=== PATIENT | male | born 1950 | race Caucasian/White ===

== ENCOUNTER 2017-05-26 13:30 | Inpatient (IN) | payer MEDICAID, MEDICARE ==
[2017-05-26] VITALS (19 sets, daily range): BP systolic 87–125; BP diastolic 47–69; PULSE 82–100; RESP 20–33; TEMP 98.3–98.8; O2SAT 89–98
[~2017-05-26] VITALS: Ht 172.7 cm; Wt 98.0 kg
[~2017-05-26 13:30] MED LIST: COMBAER INH; FLUN25I; GEMF600T PO; HYDR25SU4 PR; LEVA750T9 PO; METF500T PO; METF850T PO; NITR.4 SL; POLY1.4S OP; PRED20 PO; PREG25 PO; REST0.05 EACH EYE; TIOT18I; VITA50TA3 PO; Z.0.OXYGEN INH
[2017-05-26] MEDS ORDERED: methylPREDNISolone SOD SUCC 125 MG/2 ML VIAL IV PUSH ONE (14:00)
[2017-05-26] MEDS ORDERED: SODIUM CHLORIDE 0.9% FLUSH 10 ML FLUSH IVF PRN (14:00)
[2017-05-26] MEDS: RESP: ALBUTEROL 2.5 MG/IPRATROPIUM 0.5 MG NEB (SCH) INH ×2 (14:03→19:23)
[2017-05-26 14:21] LABS: AUTOMATED NEUTROPHIL # 5.8 TH/MM3 (1.8-7.7); BASOPHIL # 0.1 TH/MM3 (0-0.2); BASOPHIL % 0.8 % (0.0-2.0); EOSINOPHIL % 0.4 % (0.0-4.0); HEMATOCRIT 41.4 % (39.0-51.0); LYMPH % 15.1 % (9.0-44.0); LYMPHOCYTE # 1.1 TH/MM3 (1.0-4.8); MEAN CELL VOLUME 88.9 FL (80.0-100.0); MEAN CORPUSCULAR HEMOGLOBIN 28.6 PG (27.0-34.0); MEAN CORPUSCULAR HGB CONC 32.2 % (32.0-36.0); MONO % 7.1 % (0.0-8.0); NEUT % 76.6 % (16.0-70.0); PLATELET COUNT 221 TH/MM3 (150-450); RED BLOOD COUNT 4.66 MIL/MM3 (4.50-5.90); RED CELL DISTRIBUTION WIDTH 13.7 % (11.6-17.2); WHITE BLOOD COUNT 7.5 TH/MM3 (4.0-11.0)
[2017-05-26 14:22] LABS: HEMO FLAGS DIFF FINAL
[2017-05-26 14:30] LABS: CHLORIDE 88 MEQ/L (98-107); POTASSIUM 3.7 MEQ/L (3.5-5.1); SODIUM (NA) 134 MEQ/L (136-145)
[2017-05-26 14:34] LABS: ANION GAP 2 MEQ/L (5-15); BLOOD UREA NITROGEN 11 MG/DL (7-18); MAGNESIUM 1.7 MG/DL (1.5-2.5)
[2017-05-26 14:37] LABS: ALT (GPT) 23 U/L (12-78); AST (GOT) 19 U/L (15-37); GLOMERULAR FILTRATION RATE 189 ML/MIN (>89)
[2017-05-26 14:38] LABS: TOTAL BILIRUBIN ADULT 0.8 MG/DL (0.2-1.0)
[2017-05-26 14:40] LABS: ALKALINE PHOSPHATASE 64 U/L (45-117)
--- NOTE | 2017-05-26 14:48 | EKG ---
Date Performed: 05/26/2017 Time Performed: 14:00:15 PTAGE: 66 years EKG: Sinus rhythm POSSIBLE LEFT ATRIAL ENLARGEMENT INDETERMINATE AXIS RIGHT BUNDLE BRANCH BLOCK ABNORMAL ECG No signif icant change from prior electrocardiogram. . PREVIOUS TRACING : 03/19/2012 20.47 DOCTOR: Cong Muñiz Interpretating Date/Time 05/26/2017 14:47:52
--- NOTE | 2017-05-26 14:53 | PD ---
HPI Chief Complaint: Respiratory Symptoms Time Seen by Provider: 13:38 Travel History International Travel<30 days: No Contact w/Intl Traveler<30days: No Traveled to known affect area: No History of Present Illness HPI This 66-year-old male is complaining of shortness of breath. He has a history of COPD. He is on oxygen at home. He generally uses 4 L/m. He has had increasing shortness of breath over the last few days. He is not aware of fever or chills. He was admitted to the hospital about a month ago with pneumonia. He admits that he still smokes occasionally. He is not having any chest pain. He is not aware of any heart disease. He says that when his oxygen level goes low he does get confused. He occasionally hallucinates and has visual disturbances PFSH Past Medical History Cardiovascular Problems: Yes (high cholesterol ) High Cholesterol: Yes Chest Pain: Yes COPD: Yes Coronary Artery Disease: Yes Diabetes: Yes Patient Takes Glucophage: No Diminished Hearing: No Musculoskeletal: Yes (CHRONIC BACK PAIN) Respiratory: Yes (COPD ) Tetanus Vaccination: Unknown Influenza Vaccination: No Past Surgical History Appendectomy: Yes Other Surgery: Yes (PIPE EMBEDDED IN HEAD AND REMOVED) Social History Alcohol Use: No Tobacco Use: Yes Substance Use: No Allergies-Medications (Allergen,Severity, Reaction): Coded Allergies: aspirin (Unverified Allergy, Severe, Hives, 02/10/17) tramadol (Unverified Allergy, Severe, Hives, 02/10/17) No Known Allergies (Unverified Allergy, 05/20/17) Uncoded Allergies: NSAIDS (Allergy, Severe, Hives, 11/26/11) "ALL NSAIDS, I CAN'T REMEMBER ALL OF THEM" Reported Meds & Prescriptions Reported Meds & Active Scripts Active Augmentin (Amoxicillin-Clavulanate) 875-125 Mg Tab 1 Tab PO BID 10 Days Prednisone 20 Mg Tab 20 Mg PO DIRECTED Take 60 MG daily x 4 days, then 40 MG x 4 days, then 20 MG daily x 4 days. Prednisone 20 Mg Tab 20 Mg PO BID Levaquin (Levofloxacin) 750 Mg Tablet 750 Mg PO DAILY@1100 Start on 03/10/17 Reported Restasis Opth (Cyclosporine Opth) 0.05% Emul 1 Drop EACH EYE BID PRN Lyrica (Pregabalin) 25 Mg Cap 25 Mg PO BID Metformin (Metformin HCl) 500 Mg Tab 500 Mg PO BIDPC With meals Oxygen (O2) (Miscellaneous Medication) Inha 2 L INH HS Spiriva 18 Mcg Oral Inh (Tiotropium [place]) 18 Mcg Inhp 18 Mcg .XX Vit B-6 (Pyridoxine HCl) 50 Mg Tab 1 Tab PO DAILY Hydrocortisone Acetate 25 Mg Sup 25 Mg NC BID Polyvinyl Alcohol 1.4 % Estela 1 % OP QIDPRN Nitroglycerin Tab 0.4 Mg Sl (Nitroglycerin) 0.4 Mg Subl 0.4 Mg SL DIRECTED Metformin (Metformin HCl) 850 Mg Tab 1,000 Mg PO BID Gemfibrozil 600 Mg Tab 600 Mg PO BID Flunisolide 0.025 % Spr 0.025 % NA BID Combivent (Albuterol/Ipratropium) 14.7 Gm Aer 2 Puff INH QIDPRN Review of Systems General / Constitutional: No: Fever, Chills Eyes: Positive: Visual changes HENT: No: Headaches, Vertigo Cardiovascular: No: Chest Pain or Discomfort, Palpitations Respiratory: Positive: Cough, Shortness of Breath Gastrointestinal: No: Nausea, Vomiting Genitourinary: No: Urgency, Frequency Musculoskeletal: No: Myalgias Skin: No Rash Endocrine: No: Heat Intolerance Hematologic/Lymphatic: No: Easy Bruising Physical Exam Narrative GENERAL: Well-developed male. Oxygen saturation on arrival was 66%. His breathing is very labored SKIN: Focused skin assessment warm/dry. HEAD: Atraumatic. Normocephalic. EYES: Pupils equal and round. No scleral icterus. No injection or drainage. ENT: No nasal bleeding or discharge. Mucous membranes pink and moist. NECK: Trachea midline. No JVD. CARDIOVASCULAR: Regular rate and rhythm. No murmur appreciated. RESPIRATORY: There is accessory muscle use. Breath sounds are diminished bilaterally. GASTROINTESTINAL: Abdomen soft, non-tender, nondistended. Hepatic and splenic margins not palpable. MUSCULOSKELETAL: No obvious deformities. No clubbing. No cyanosis. No edema. NEUROLOGICAL: Awake and alert. No obvious cranial nerve deficits. Motor grossly within normal limits. Hyperactive speech. PSYCHIATRIC: Appropriate mood and affect; insight and judgment limited Data Data Last Documented VS Vital Signs Date Time Temp Pulse Resp B/P (MAP) Pulse Ox O2 Delivery O2 Flow Rate FiO2 05/26/17 14:34 98 Nasal Cannula 4.00 05/26/17 14:15 22 05/26/17 14:00 93 125/69 (87) Orders Orders Complete Blood Count With Diff (05/26/17 13:49) Comprehensive Metabolic Panel (05/26/17 13:49) B-Type Natriuretic Peptide (05/26/17 13:49) Magnesium (Mg) (05/26/17 13:49) Troponin I (05/26/17 13:49) Urinalysis - C+S If Indicated (05/26/17 13:49) Blood Culture (05/26/17 13:49) Iv Access Insert/Monitor (05/26/17 13:49) Electrocardiogram (05/26/17 13:49) Ecg Monitoring (05/26/17 13:49) Oximetry (05/26/17 13:49) Oxygen Administration (05/26/17 13:49) Chest, Single Ap (05/26/17 13:49) Sodium Chloride 0.9% Flush (Ns Flush) (05/26/17 14:00) Methylprednisolone So Succ Inj (Solumedr (05/26/17 14:00) Albuterol-Ipratropium Neb (Duoneb Neb) (05/26/17 14:00) Hospice Consult (05/26/17 15:47) Amoxicil-Clavulanate (Augmentin) (05/26/17 16:00) Labs Laboratory Tests Test 05/26/17 14:10 White Blood Count 7.5 TH/MM3 Red Blood Count 4.66 MIL/MM3 Hemoglobin 13.3 GM/DL Hematocrit 41.4 % Mean Corpuscular Volume 88.9 FL Mean Corpuscular Hemoglobin 28.6 PG Mean Corpuscular Hemoglobin Concent 32.2 % Red Cell Distribution Width 13.7 % Platelet Count 221 TH/MM3 Mean Platelet Volume 8.3 FL Neutrophils (%) (Auto) 76.6 % Lymphocytes (%) (Auto) 15.1 % Monocytes (%) (Auto) 7.1 % Eosinophils (%) (Auto) 0.4 % Basophils (%) (Auto) 0.8 % Neutrophils # (Auto) 5.8 TH/MM3 Lymphocytes # (Auto) 1.1 TH/MM3 Monocytes # (Auto) 0.5 TH/MM3 Eosinophils # (Auto) 0.0 TH/MM3 Basophils # (Auto) 0.1 TH/MM3 CBC Comment DIFF FINAL Differential Comment Blood Urea Nitrogen 11 MG/DL Creatinine 0.45 MG/DL Random Glucose 118 MG/DL Total Protein 7.2 GM/DL Albumin 3.5 GM/DL Calcium Level 9.1 MG/DL Magnesium Level 1.7 MG/DL Alkaline Phosphatase 64 U/L Aspartate Amino Transf (AST/SGOT) 19 U/L Alanine Aminotransferase (ALT/SGPT) 23 U/L Total Bilirubin 0.8 MG/DL Sodium Level 134 MEQ/L Potassium Level 3.7 MEQ/L Chloride Level 88 MEQ/L Carbon Dioxide Level 44.0 MEQ/L Anion Gap 2 MEQ/L Estimat Glomerular Filtration Rate 189 ML/MIN Troponin I LESS THAN 0.02 NG/ML B-Type Natriuretic Peptide 32 PG/ML MDM Medical Decision Making Medical Screen Exam Complete: Yes Emergency Medical Condition: Yes Medical Record Reviewed: Yes Differential Diagnosis Differential includes COPD exacerbation, pneumonia, CHF Narrative Course Patient lives alone. Chest x-ray shows low lung volumes with persistent patchy left lower lobe airspace disease with at least some component of atelectasis. He has been given repeated nebulizer treatments. His saturations on supplemental oxygen are in the low 90s. He remains short of breath. I spoke to the patient at some length and recommended admission. The patient adamantly refuses admission. I have explained the risk of and he is quite adamant does not want to be admitted. He is awake and alert and understands the consequences of his actions. He did requests hospice assistance and I will try to arrange this. Patient is insistent on not staying in the hospital. I will prescribe prednisone and Augmentin supplements his other medications Diagnosis Primary Impression: Pneumonia Additional Impression: COPD exacerbation Scripts Amoxicillin-Clavulanate (Augmentin) 875-125 Mg Tab 1 TAB PO BID for Infection for 10 Days, #20 TAB 0 Refills Prov: Wade Garrett MD 05/26/17 Prednisone (Prednisone) 20 Mg Tab 20 MG PO DIRECTED, #24 TAB 0 Refills Take 60 MG daily x 4 days, then 40 MG x 4 days, then 20 MG daily x 4 days. Prov: Wade Garrett MD 05/26/17 Disposition: 07 AGAINST MEDICAL ADVICE Condition: Serious Wade Garrett MD May 26, 2017 14:53
--- NOTE | 2017-05-26 15:19 | RADRPT ---
EXAM DATE/TIME: 05/26/2017 14:39 [facility] COMPARISON: CHEST SINGLE AP, March 04, 2017, 7:50. INDICATIONS : Short of breath. MEDICAL HISTORY : Chronic obstructive pulmonary disease. Diabetes mellitus type II. Hypertension. neuropathy SURGICAL HISTORY : None. ENCOUNTER: Initial ACUITY: 1 week PAIN SCORE: 0/10 LOCATION: Bilateral chest FINDINGS: Lungs are hyperexpanded with persistent airspace disease in the left lower lung zone, now more linear in configuration laterally. The cardiomediastinal contours are within normal limits. Remainder of ex am is unchanged. CONCLUSION: 1. Low lung volumes with persistent patchy left lower lobe airspace disease with at least some compon ent of atelectasis. Richard Faye MD on May 26, 2017 at 15:15 Board Certified Radiologist. This report was verified electronically.
[2017-05-26] MEDS ORDERED: AUGM875T3 PO (15:49)
[2017-05-26] MEDS ORDERED: PRED20 PO (15:49)
[2017-05-26] MEDS ORDERED: FLUN25I EACH NARE (16:00)
[2017-05-26] MEDS ORDERED: AMOXICILLIN/CLAVULANATE K 875 MG TAB PO ONE (16:00)
[2017-05-26] MEDS ORDERED: TIOT12.9 INH (16:00)
[2017-05-26] MEDS ORDERED: GEMF600T PO (16:00)
[2017-05-26] MEDS ORDERED: RESP: ALBUTEROL 2.5 MG/3 ML NEB (PRN) INH (16:30)
[2017-05-26 16:49] LABS: BLOOD GAS BASE EXCESS 15.9 mmol/L (-2-2); BLOOD GAS CARBOXYHEMOGLOBIN 9.2 % (0-4); BLOOD GAS HCO3 43 mmol/L (22-26); BLOOD GAS O2 HGB SATURATION 80 % (90-100); BLOOD GAS OXYGEN CONTENT 16.1 Vol % (12.0-20.0); BLOOD GAS PCO2 87 mmHG (38-42); BLOOD GAS PO2 56 mmHG (61-120); BLOOD GAS TOTAL HGB 14.3 G/DL (12.0-16.0); TEMP CORR TO 98.6
[2017-05-26 16:50] LABS: CRITICAL VALUE YES; DRAW SITE RT RADIAL; LITER FLOW 4 L/M; NUMBER OF ARTERIAL PUNCTURES 1; OXYGEN DEVICE NASAL CANNULA; STAT YES; ULNAR PULSE PRESENT
[2017-05-26] MEDS ORDERED: GLUCAGON 1 MG/ML VIAL OTHER PRN (17:15)
[2017-05-26] MEDS ORDERED: DEXTROSE 50% IN WATER 50 ML VIAL(D50) IV PUSH PRN (17:15)
[2017-05-26] MEDS: AZITHROMYCIN INJ 500 MG in SODIUM CHLOR 0.9% 250 ML INJ 250 ML IV SCH (17:31)
--- NOTE | 2017-05-26 17:31 | HHI.HP ---
[facility] Admission Diagnosis PNEUMONIA, COPD EXACERBATION Diagnoses: Chief Complaint: sob Travel History International Travel<30 Days: No Contact w/Intl Traveler <30 Da: No Traveled to Known Affected Are: No History of Present Illness patient is a 66 year old man with known copd on 3-4 L O2 at home. He follows up locally with the pulmonology team. Patient is admitted through the ER he came because he had increasing shortness of breath over the last several days. He had no fever or chills. He is a poor historian and appears somewhat confused. Intermittently he is quite alert and oriented however. HE initially requested hospice and to be discharged however the patient has since requested he have further treatment for acute respiratory failure. He has noted increased lower extremity edema over the last several days. He has received and evaluated with COPD and has had CO2 levels in the 90s in the past. Here his CO2 is in the 80s. He has hyperchloremia and will be admitted to the ICU for respiratory failure. Review of Systems Constitutional: DENIES: Diaphoretic episodes, Fatigue, Fever, Weight gain, Weight loss, Chills, Dizziness, Change in appetite, Night Sweats Endocrine: DENIES: Heat/cold intolerance, Polydipsia, Polyuria, Polyphagia Eyes: DENIES: Blurred vision, Diplopia, Eye inflammation, Eye pain, Vision loss , Photosensitivity, Double Vision Ears, nose, mouth, throat: DENIES: Tinnitus, Hearing loss, Vertigo, Nasal discharge, Oral lesions, Throat pain, Hoarseness, Ear Pain, Running Nose, Epistaxis, Sinus Pain, Toothache, Odynophagia Respiratory: DENIES: Apneas, Cough, Snoring, Wheezing, Hemoptysis, Sputum production, Shortness of breath Cardiovascular: DENIES: Chest pain, Palpitations, Syncope, Dyspnea on Exertion , PND, Lower Extremity Edema, Orthopnea, Claudication Gastrointestinal: DENIES: Abdominal pain, Black stools, Bloody stools, Constipation, Diarrhea, Nausea, Vomiting, Difficulty Swallowing, Anorexia Genitourinary: DENIES: Sexual dysfunction, Urinary frequency, Urinary incontinence, Urgency, Hematuria, Dysuria, Nocturia, Penile Discharge, Testicular Pain, Testicular Swelling Musculoskeletal: DENIES: Joint pain, Muscle aches, Stiffness, Joint Swelling, Back pain, Neck pain Integumentary: DENIES: Abnormal pigmentation, Nail changes, Pruritus, Rash Hematologic/lymphatic: DENIES: Bruising, Lymphadenopathy Immunologic/allergic: DENIES: Eczema, Urticaria Neurologic: DENIES: Abnormal gait, Headache, Localized weakness, Paresthesias, Seizures, Speech Problems, Tremor, Poor Balance Psychiatric: DENIES: Anxiety, Confusion, Mood changes, Depression, Hallucinations, Agitation, Suicidal Ideation, Homicidal Ideation, Delusions Except as stated in HPI: all other systems reviewed are Neg Past Family Social History Past Medical History Diabetes mellitus type 2 Chronic back pain Hyperlipidemia COPD Tobacco dependence Diabetic neuropathy Past Surgical History Appendectomy Allergies: Coded Allergies: aspirin (Unverified Allergy, Severe, Hives, 02/10/17) tramadol (Unverified Allergy, Severe, Hives, 02/10/17) No Known Allergies (Unverified Allergy, Unknown, 05/26/17) Uncoded Allergies: NSAIDS (Allergy, Severe, Hives, 11/26/11) "ALL NSAIDS, I CAN'T REMEMBER ALL OF THEM" Physical Exam Vital Signs Vital Signs Date Time Temp Pulse Resp B/P (MAP) Pulse Ox O2 Delivery O2 Flow Rate FiO2 05/26/17 16:53 05/26/17 16:12 85 20 87/61 (70) 90 Nasal Cannula 4.00 05/26/17 15:45 85 20 87/61 (70) 90 Nasal Cannula 4.00 05/26/17 14:34 98 Nasal Cannula 4.00 05/26/17 14:20 98 Nasal Cannula 4.00 05/26/17 14:15 22 90 Nasal Cannula 5.00 05/26/17 14:00 93 22 125/69 (87) 90 Physical Exam GENERAL: This is a well-nourished, well-developed patient, with tachypnea, hypoxemic at rest SKIN: No rashes, ecchymoses or lesions. Cool and dry. HEAD: Atraumatic. Normocephalic. No temporal or scalp tenderness. EYES: Pupils equal round and reactive. Extraocular motions intact. No scleral icterus. No injection or drainage. ENT: Nose without bleeding, purulent drainage or septal hematoma. Throat without erythema, tonsillar hypertrophy or exudate. Uvula midline. Airway patent. NECK: Trachea midline. No JVD or lymphadenopathy. Supple, nontender, no meningeal signs. CARDIOVASCULAR: Sinus tachycardia without murmurs, gallops, or rubs. RESPIRATORY: Tachypneic, decreased air flow bilaterally GASTROINTESTINAL: Abdomen soft, non-tender, nondistended. No hepato-splenomegaly , or palpable masses. No guarding. MUSCULOSKELETAL: Extremities without clubbing, cyanosis, or edema. No joint tenderness, effusion, but +3 edema is noted. No calf tenderness. Negative Homans sign bilaterally. NEUROLOGICAL: Awake and alert. Cranial nerves II through XII intact. Motor and sensory grossly within normal limits. Five out of 5 muscle strength in all muscle groups. Normal speech. Laboratory Laboratory Tests Test 05/26/17 14:10 05/26/17 16:40 White Blood Count 7.5 Red Blood Count 4.66 Hemoglobin 13.3 Hematocrit 41.4 Mean Corpuscular Volume 88.9 Mean Corpuscular Hemoglobin 28.6 Mean Corpuscular Hemoglobin Concent 32.2 Red Cell Distribution Width 13.7 Platelet Count 221 Mean Platelet Volume 8.3 Neutrophils (%) (Auto) 76.6 Lymphocytes (%) (Auto) 15.1 Monocytes (%) (Auto) 7.1 Eosinophils (%) (Auto) 0.4 Basophils (%) (Auto) 0.8 Neutrophils # (Auto) 5.8 Lymphocytes # (Auto) 1.1 Monocytes # (Auto) 0.5 Eosinophils # (Auto) 0.0 Basophils # (Auto) 0.1 CBC Comment DIFF FINAL Differential Comment Blood Urea Nitrogen 11 Creatinine 0.45 Random Glucose 118 Total Protein 7.2 Albumin 3.5 Calcium Level 9.1 Magnesium Level 1.7 Alkaline Phosphatase 64 Aspartate Amino Transf (AST/SGOT) 19 Alanine Aminotransferase (ALT/SGPT) 23 Total Bilirubin 0.8 Sodium Level 134 Potassium Level 3.7 Chloride Level 88 Carbon Dioxide Level 44.0 Anion Gap 2 Estimat Glomerular Filtration Rate 189 Troponin I LESS THAN 0.02 B-Type Natriuretic Peptide 32 Blood Gas Puncture Site RT RADIAL Blood Gas Patient Temperature 98.6 Blood Gas HCO3 43 Blood Gas Base Excess 15.9 Blood Gas Oxygen Saturation 80 Arterial Blood pH 7.32 Arterial Blood Partial Pressure CO2 87 Arterial Blood Partial Pressure O2 56 Arterial Blood Oxygen Content 16.1 Arterial Blood Carboxyhemoglobin 9.2 Arterial Blood Methemoglobin 1.0 Blood Gas Hemoglobin 14.3 Oxygen Delivery Device NASAL CANNULA Blood Gas Liter Flow 4 Date/Time Source Procedure Growth Status 05/26/17 14:10 Blood Peripheral Aerobic Blood Culture Pending Received 05/26/17 14:10 Blood Peripheral Anaerobic Blood Culture Pending Received Result Diagram: 05/26/17 1410 05/26/17 1410 Imaging Last Impressions Chest X-Ray 05/26/17 1349 Signed Impressions: Service Date/Time: Friday, May 26, 2017 14:39 - CONCLUSION: 1. Low lung volumes with persistent patchy left lower lobe airspace disease with at least some component of atelectasis. MD Mars Deng VTE Risk Assessment Mars VTE Risk Assessment: Mod/High Risk (score >= 2) Caprini Risk Assessment Model Point Value = 1 Point Value = 2 Point Value = 3 Point Value = 5 Age 41-60 Minor surgery BMI > 25 kg/m2 Swollen legs Varicose veins or History of unexplained or recurrent spontaneous Oral contraceptives or hormone replacement Sepsis (< 1 month) Serious lung disease, including pneumonia (< 1 month) Abnormal pulmonary function Acute myocardial infarction Congestive heart failure (< 1 month) History of inflammatory bowel disease Medical patient at bed rest Age 61-74 Arthroscopic surgery Major open surgery (> 45 min) Laparoscopic surgery (> 45 min) Malignancy Confined to bed (> 72 hours) Immobilizing plaster cast Central venous access Age >= 75 History of VTE Family history of VTE Factor V Leiden Prothrombin [id number] Lupus anticoagulant Anticardiolipin antibodies Elevated serum homocysteine Heparin-induced thrombocytopenia Other congenital or acquired thrombophilia Stroke (< 1 month) Elective arthroplasty Hip, pelvis, or leg fracture Acute spinal cord injury (< 1 month) Prophylaxis Regimen Total Risk Factor Score Risk Level Prophylaxis Regimen 0-1 Low Early ambulation 2 Moderate Order ONE of the following: *Sequential Compression Device (SCD) *Heparin 5000 units SQ BID 3-4 Higher Order ONE of the following medications: *Heparin 5000 units SQ TID *Enoxaparin/Lovenox 40 mg SQ daily (WT < 150 kg, CrCl > 30 mL/min) *Enoxaparin/Lovenox 30 mg SQ daily (WT < 150 kg, CrCl > 10-29 mL/min) *Enoxaparin/Lovenox 30 mg SQ BID (WT < 150 kg, CrCl > 30 mL/min) AND/OR *Sequential Compression Device (SCD) 5 or more Highest Order ONE of the following medications: *Heparin 5000 units SQ TID (Preferred with Epidurals) *Enoxaparin/Lovenox 40 mg SQ daily (WT < 150 kg, CrCl > 30 mL/min) *Enoxaparin/Lovenox 30 mg SQ daily (WT < 150 kg, CrCl > 10-29 mL/min) *Enoxaparin/Lovenox 30 mg SQ BID (WT < 150 kg, CrCl > 30 mL/min) AND *Sequential Compression Device (SCD) Assessment and Plan Problem List: (1) COPD exacerbation ICD Code: J44.1 - Chronic obstructive pulmonary disease with (acute) exacerbation Plan: With acute hypercapnic respiratory failure BiPAP Oxygen to wean as tolerated Continue IV steroids, bronchodilators by nebulizer Azithromycin IV Admitted to ICU diamox echo r/o cor pulmonale (2) Encephalopathy acute ICD Code: G93.40 - Encephalopathy, unspecified Plan: Likely metabolic due to hypercapnia Continue treatment for COPD (3) DM2 (diabetes mellitus, type 2) ICD Code: E11.9 - Type 2 diabetes mellitus without complications Plan: Continue with Accu-Cheks, diabetic diet Patient with diabetic neuropathy, continue Lyrica Hold metformin for now while inpatient (4) Hypochloremia ICD Code: E87.8 - Other disorders of electrolyte and fluid balance, not elsewhere classified Plan: secondary to resp failure Assessment and Plan hospice eval at bedside Code Status full code Physician Certification 2 Midnight Certification Type: Admission for Inpatient Services Order for Inpatient Services The services are ordered in accordance with Medicare regulations or non- Medicare payer requirements, as applicable. In the case of services not specified as inpatient-only, they are appropriately provided as inpatient services in accordance with the 2-midnight benchmark. Estimated LOS (days): 4 4 days is the estimated time the patient will need to remain in the hospital, assuming treatment plan goals are met and no additional complications. Post-Hospital Plan: Kita Kellogg MD May 26, 2017 17:31
[2017-05-26] MEDS: ENOXAPARIN SODIUM 40 MG/0.4 ML SYRINGE SQ SCH (17:35)
[2017-05-26] MEDS ORDERED: RESTASIS OPTH EACH EYE PRN (18:00)
[2017-05-26] MEDS ORDERED: CHLORHEXIDINE GLUCONATE 2 % 1 PACK (2 CLOTHS)(extra cloths) TOPICAL PRN (18:15)
[2017-05-26] MEDS ORDERED: PILL SPLITTER OTHER PRN (18:30)
[2017-05-26 19:59] LABS: BLOOD, URINE NEG (NEG); GLUCOSE,URINE NEG (NEG); KETONE, URINE 15 mg/dL (NEG); NITRITE,URINE NEG (NEG)
[2017-05-26 20:05] LABS: URINE COLOR YELLOW (YELLW/STRAW)
[2017-05-26 20:10] LABS: COMMENT (UR) CULT NOT INDICATED; CULTURE IF INDICATED CULT NOT INDICATED; SQUAMOUS EPITHELIAL CELL URINE 0-5 /hpf (0-5)
[2017-05-26 20:11] LABS: WBC, URINE 0-2 /hpf (0-5)
[2017-05-26] MEDS: acetaZOLAMIDE 250 MG TAB PO SCH (20:27)
[2017-05-26] MEDS: SODIUM CHLORIDE 0.9% FLUSH 10 ML FLUSH IV FLUSH SCH (20:28)
[2017-05-26] MEDS: methylPREDNISolone SOD SUCC 125 MG/2 ML VIAL IV PUSH SCH (20:29)
[2017-05-26] MEDS: PREGABALIN 25 MG CAP PO SCH (20:29)
[2017-05-26] MEDS: INSULIN ASPART SUPPLEMENTAL SCALE SQ SCH (20:44)
--- NOTE | 2017-05-26 20:54 | MB ---
cc: WILLIE TAPIA DATE OF CONSULTATION: 05/26/2017 REASON FOR CONSULTATION: COPD exacerbation, respiratory failure. HISTORY OF PRESENT ILLNESS Mr. Panchal is a 66-year-old male with known severe COPD and chronic respiratory failure on oxygen therapy presents to the emergency room with a three to four day history of worsening shortness of breath, unresponsive to home therapy. He is followed at the [facility] at present. He has noted as well that his legs are getting more swollen lately. He was noted to be hypoxic as well as hypercarbic respiratory failure. No occasional cough, no expectoration. No fever or chills. No hemoptysis. PAST MEDICAL HISTORY: 1. Severe COPD. 2. Chronic respiratory failure. 3. Diabetes mellitus. 4. Hyperlipidemia. 5. Diabetes mellitus and diabetic neuropathy. 6. Previous appendectomy. ALLERGIES: ASPIRIN. TRAMADOL NONSTEROIDAL ANTI-INFLAMMATORY AGENTS MEDICATIONS: Kindly review EMR. SOCIAL HISTORY: Long smoking history, drinks alcohol socially. No TB, no industrial exposure. SYSTEM REVIEW: 12 point review of systems as per HPI and past history, otherwise negative. PHYSICAL EXAMINATION: VITAL SIGNS: Temperature 98 degree Fahrenheit, pulse 90, respirations 20, blood pressure 120/70, oxygen saturation 90% on 4 liters oxygen via nasal cannula. HEENT: Exam unremarkable. Eyes without icterus. Neck: Without adenopathy or thyroid enlargement. Chest: Decreased breath sounds throughout both lungs. HEENT: Exam unremarkable. Eyes without icterus. Neck: Without adenopathy, thyroid enlargement, central trachea. Chest: Few scattered rhonchi bilaterally. Cardiac exam: PMI distant. S1-S2 audible. 1/6 ejection systolic murmur, left sternal border. Abdomen: Lax bowel sounds audible. Extremities: Stasis discoloration noted. LABORATORY DATA Chest x-ray with patchy infiltrate left lower lung and/or atelectasis. White count is 7.5, hemoglobin 13, hematocrit 41, platelets at 221,000, sodium 134, potassium 3.7, BUN 11, creatinine 0.4. IMPRESSION 1. COPD exacerbation. 2. Question pneumonitis. 3. Hypoxic hypercarbic respiratory failure. 4. Diabetes mellitus. PLAN The patient will be maintained on oxygen therapy as needed. Bronchodilator therapy as well as antibiotic therapy have been initiated and appropriately so, as arterial blood gas was checked with a pH of 7.32, pCO2 87, pO2 86, indicating acute on top of chronic respiratory failure. Chest x-ray will be followed. Intravenous steroid therapy has been initiated as well as inhaled bronchodilators. I do thank you for asking me to participate in Mr. Panchal's care. Will be happy to follow as needed. Willie Tapia MD WWW/BELINDA /7:09 PM /7:49 PM
[2017-05-27] VITALS (29 sets, daily range): BP systolic 93–134; BP diastolic 45–85; PULSE 72–100; RESP 15–40; TEMP 98–98.3; O2SAT 89–95
[2017-05-27] MEDS: CHLORHEXIDINE GLUCONATE 2 % 1 PACK (2 CLOTHS)(taper/protocol) TOPICAL SCH
[2017-05-27] MEDS: methylPREDNISolone SOD SUCC 125 MG/2 ML VIAL IV PUSH SCH ×4 (02:56→18:57)
[2017-05-27] MEDS: SODIUM CHLORIDE 0.9% FLUSH 10 ML FLUSH IV FLUSH PRN (02:56)
[2017-05-27 05:13] LABS: POTASSIUM 3.8 MEQ/L (3.5-5.1)
[2017-05-27 05:16] LABS: BICARBONATE 40.9 MEQ/L (21.0-32.0)
[2017-05-27 05:23] LABS: AUTOMATED NEUTROPHIL # 3.7 TH/MM3 (1.8-7.7); BASOPHIL # 0.1 TH/MM3 (0-0.2); BASOPHIL % 1.6 % (0.0-2.0); HEMATOCRIT 41.9 % (39.0-51.0); HEMO FLAGS DIFF FINAL; LYMPH % 11.9 % (9.0-44.0); LYMPHOCYTE # 0.5 TH/MM3 (1.0-4.8); MEAN CORPUSCULAR HEMOGLOBIN 28.4 PG (27.0-34.0); MEAN CORPUSCULAR HGB CONC 31.9 % (32.0-36.0); MONO % 1.2 % (0.0-8.0); NEUT % 85.3 % (16.0-70.0); PLATELET COUNT 218 TH/MM3 (150-450); RED BLOOD COUNT 4.71 MIL/MM3 (4.50-5.90); RED CELL DISTRIBUTION WIDTH 13.9 % (11.6-17.2); WHITE BLOOD COUNT 4.4 TH/MM3 (4.0-11.0)
[2017-05-27] MEDS: RESP: ALBUTEROL 2.5 MG/IPRATROPIUM 0.5 MG NEB (SCH) INH ×3 (07:37→19:42)
[2017-05-27] MEDS: INSULIN ASPART SUPPLEMENTAL SCALE SQ SCH ×4 (07:45→20:34)
[2017-05-27] MEDS: PREGABALIN 25 MG CAP PO SCH ×2 (07:46→20:25)
[2017-05-27] MEDS: SODIUM CHLORIDE 0.9% FLUSH 10 ML FLUSH IV FLUSH SCH ×2 (07:57→20:27)
[2017-05-27] MEDS: acetaZOLAMIDE 250 MG TAB PO SCH ×2 (09:00→20:25)
[2017-05-27] MEDS ORDERED: INFLUENZA VIRUS VACCINE (QUADRIVALENT) 0.5 ML SYR IM ONE (10:00)
--- NOTE | 2017-05-27 13:06 | HHI.PR ---
Subjective Remarks Patient seen and evaluated in follow-up for COPD exacerbation and hypercapnic respiratory failure. BiPAP overnight. Care plan discussed with [facility] and with patient. He reports some anxiety and requests a nicotine patch Objective Vitals Vital Signs Date Time Temp Pulse Resp B/P (MAP) Pulse Ox O2 Delivery O2 Flow Rate FiO2 05/27/17 10:47 82 05/27/17 10:00 72 05/27/17 08:00 50 Bi-Pap 89 05/27/17 08:00 98.3 72 22 105/54 (71) 92 05/27/17 08:00 72 05/27/17 07:37 90 45 05/27/17 06:00 80 22 101/45 (63) 94 05/27/17 06:00 80 05/27/17 05:05 94 50 05/27/17 05:00 74 19 93/45 (61) 95 05/27/17 04:00 98.3 72 22 105/54 (71) 92 05/27/17 04:00 72 05/27/17 03:00 76 22 104/54 (71) 92 05/27/17 02:00 74 05/27/17 02:00 74 15 105/53 (70) 93 05/27/17 01:45 92 50 05/27/17 01:00 86 30 113/67 (82) 89 05/27/17 00:03 83 05/27/17 00:00 98.0 84 23 114/59 (77) 91 05/26/17 23:04 82 23 119/62 (81) 90 05/26/17 23:00 82 22 89/47 (61) 89 05/26/17 22:25 90 50 05/26/17 22:09 92 28 99/60 (73) 91 05/26/17 22:00 94 05/26/17 21:00 92 28 108/68 (81) 91 05/26/17 20:11 98.8 98 30 119/64 (82) 90 05/26/17 20:00 92 05/26/17 19:55 92 Nasal Cannula 6.00 05/26/17 19:20 95 50 05/26/17 19:15 100 33 102/49 (66) 94 05/26/17 18:00 90 05/26/17 17:15 93 50 05/26/17 17:00 98.3 96 33 112/63 (79) 91 05/26/17 16:53 05/26/17 16:12 85 20 87/61 (70) 90 Nasal Cannula 4.00 05/26/17 16:00 93 Nasal Cannula 6.00 05/26/17 15:45 85 20 87/61 (70) 90 Nasal Cannula 4.00 05/26/17 14:34 98 Nasal Cannula 4.00 05/26/17 14:20 98 Nasal Cannula 4.00 05/26/17 14:15 22 90 Nasal Cannula 5.00 05/26/17 14:00 93 22 125/69 (87) 90 I/O 05/26/17 05/26/17 05/26/17 05/27/17 05/27/17 05/27/17 07:00 15:00 23:00 07:00 15:00 23:00 Intake Total 220 ml Output Total 600 ml Balance -380 ml Intake Oral 220 ml Output Urine Total 600 ml # Voids 2 # Bowel Movements 0 Result Diagram: 05/27/17 0435 05/27/175 Imaging GENERAL: This is a well-nourished, well-developed patient, in no apparent distress. CARDIOVASCULAR: Regular rate and rhythm without murmurs, gallops, or rubs. RESPIRATORY: Decreased air flow bilaterally GASTROINTESTINAL: Abdomen soft, non-tender, nondistended. Normal active bowel sounds MUSCULOSKELETAL: Extremities without clubbing, cyanosis, or edema. NEURO: Alert & Oriented x4 to person, place, time, situation. Moves all ext x4 A/P Problem List: (1) COPD exacerbation ICD Code: J44.1 - Chronic obstructive pulmonary disease with (acute) exacerbation Plan: With acute hypercapnic respiratory failure BiPAP Oxygen to wean as tolerated Continue IV steroids, bronchodilators by nebulizer Azithromycin IV Admitted to ICU diamox echo r/o cor pulmonale Pulmonary consult appreciated (2) Encephalopathy acute ICD Code: G93.40 - Encephalopathy, unspecified Plan: Improved Likely metabolic due to hypercapnia Continue treatment for COPD (3) DM2 (diabetes mellitus, type 2) ICD Code: E11.9 - Type 2 diabetes mellitus without complications Plan: Continue with Accu-Cheks, diabetic diet Patient with diabetic neuropathy, continue Lyrica Hold metformin for now while inpatient (4) Hypochloremia ICD Code: E87.8 - Other disorders of electrolyte and fluid balance, not elsewhere classified Plan: secondary to resp failure Improving slowly continue to follow Kita Bartholomew MD May 27, 2017 13:06
--- NOTE | 2017-05-27 14:02 | ECHRPT ---
Indication: SOB CONCLUSIONS Normal left ventricular size. Moderate concentric left ventricular hypertrophy. The left ventricular systolic function is mildly reduced with an estimated ejection fraction in the range of 45- 50%. The right ventricle is mildly dilated. The left atrial size is [id number]-rajonjrcbf dilated. The right atrial size is nftg-rb-kbxchxrclk dilated. Thickened atrial septum is noted with morphological features most consistent with a lipomatous atria l septum. A possible atrial level shunt is demonstrated by color flow Doppler interrogation, clinical correlat ion recommended. BP: 101 / 45 HR: Rhythm: Sinus MEASUREMENTS (Male / Female) Normal Values Technical Quality:Very technically difficult study 2D ECHO LV Diastolic Diameter PLAX 4.8 cm 4.2 - 5.9 / 3.9 - 5.3 cm LV Systolic Diameter PLAX 3.8 cm IVS Diastolic Thickness 1.3 cm 0.6 - 1.0 / 0.6 - 0.9 cm LVPW Diastolic Thickness 1.3 cm 0.6 - 1.0 / 0.6 - 0.9 cm LV Relative Wall Thickness 0.6 LVOT Diameter 2.1 cm Aortic Root Diameter 3.3 cm LA Systolic Diameter LX 2.9 cm 3.0 - 4.0 / 2.7 - 3.8 cm M-MODE AV Cusp Separation MM 2.1 cm DOPPLER AV Peak Velocity 125.0 cm/s AV Peak Gradient 6.3 mmHg AV Mean Gradient 4.0 mmHg AV Velocity Time Integral 25.1 cm LVOT Peak Velocity 64.7 cm/s LVOT Peak Gradient 1.7 mmHg LVOT Velocity Time Integral 14.4 cm AV Area Cont Eq vti 2.0 cm AV Area Cont Eq pk 1.8 cm Mitral E Point Velocity 82.4 cm/s Mitral A Point Velocity 101.0 cm/s Mitral E to A Ratio 0.8 LV E' Lateral Velocity 10.5 cm/s Mitral E to LV E' Lateral Ratio 7.8 LV E' Septal Velocity 8.7 cm/s Mitral E to LV E' Septal Ratio 9.5 PV Peak Velocity 76.7 cm/s PV Peak Gradient 2.4 mmHg FINDINGS LEFT VENTRICLE Normal left ventricular size. Moderate concentric left ventricular hypertrophy. The left ventricular systolic function is mildly reduced with an estimated ejection fraction in the range of 45- 50%. RIGHT VENTRICLE The right ventricle is mildly dilated. LEFT ATRIUM The left atrial size is qjmc-qy-qokasxdukk dilated. RIGHT ATRIUM The right atrial size is xmxi-ca-atxzixgbhj dilated. ATRIAL SEPTUM Thickened atrial septum is noted with morphological features most consistent with a lipomatous atria l septum. A possible atrial level shunt is demonstrated by color flow Doppler interrogation, clinical correlat ion recommended. Aristides Hurt MD, FACC, [facility] [place] (Electronically Signed) Final Date:27 May 2017 14:02
[2017-05-27] MEDS: NICOTINE 21 MG/24 HR PATCH T-DERMAL SCH (14:52)
--- NOTE | 2017-05-27 18:06 | HHI.PR ---
Subjective Remarks ALERT SITTING AT BEDSIDE ON O2 nc Objective Vital Signs Date Time Temp Pulse Resp B/P (MAP) Pulse Ox O2 Delivery O2 Flow Rate FiO2 05/27/17 15:01 86 40 117/63 (81) 93 05/27/17 14:01 74 27 113/59 (77) 91 05/27/17 14:00 78 05/27/17 13:01 76 27 115/57 (76) 95 05/27/17 12:00 80 26 124/73 (90) 95 05/27/17 12:00 80 05/27/17 10:47 82 05/27/17 10:00 72 05/27/17 08:00 50 Bi-Pap 89 05/27/17 08:00 98.3 72 22 105/54 (71) 92 05/27/17 08:00 72 05/27/17 07:37 90 45 05/27/17 07:37 90 Nasal Cannula 6.00 05/27/17 06:00 80 22 101/45 (63) 94 05/27/17 06:00 80 05/27/17 05:05 94 50 05/27/17 05:00 74 19 93/45 (61) 95 05/27/17 04:00 98.3 72 22 105/54 (71) 92 05/27/17 04:00 72 05/27/17 03:00 76 22 104/54 (71) 92 05/27/17 02:00 74 05/27/17 02:00 74 15 105/53 (70) 93 05/27/17 01:45 92 50 05/27/17 01:00 86 30 113/67 (82) 89 05/27/17 00:03 83 05/27/17 00:00 98.0 84 23 114/59 (77) 91 05/26/17 23:04 82 23 119/62 (81) 90 05/26/17 23:00 82 22 89/47 (61) 89 05/26/17 22:25 90 50 05/26/17 22:09 92 28 99/60 (73) 91 05/26/17 22:00 94 05/26/17 21:00 92 28 108/68 (81) 91 05/26/17 20:11 98.8 98 30 119/64 (82) 90 05/26/17 20:00 92 05/26/17 19:55 92 Nasal Cannula 6.00 05/26/17 19:20 95 50 05/26/17 19:15 100 33 102/49 (25) 94 I/O 05/26/17 05/26/17 05/26/17 05/27/17 05/27/17 05/27/17 07:00 15:00 23:00 07:00 15:00 23:00 Intake Total 220 ml Output Total 600 ml Balance -380 ml Intake Oral 220 ml Output Urine Total 600 ml # Voids 2 # Bowel Movements 0 Result Diagram: 05/27/1743405/27/17434 Objective Remarks GENERAL: SKIN: Warm and dry. HEAD: Atraumatic. Normocephalic. EYES: Pupils equal and round. No scleral icterus. No injection or drainage. ENT: No nasal bleeding or discharge. Mucous membranes pink and moist. NECK: Trachea midline. No JVD. CARDIOVASCULAR: Regular rate and rhythm. RESPIRATORY: No accessory muscle use. Clear to auscultation. Breath sounds equal bilaterally. GASTROINTESTINAL: Abdomen soft, non-tender, nondistended. Hepatic and splenic margins not palpable. MUSCULOSKELETAL: Extremities without clubbing, cyanosis, or edema. No obvious deformities. NEUROLOGICAL: Awake and alert. No obvious cranial nerve deficits. Motor grossly within normal limits. Five out of 5 muscle strength in the arms and legs. Normal speech. PSYCHIATRIC: Appropriate mood and affect; insight and judgment normal. Assessment and Plan Assessment and Plan copd respiratory failure PNA PLAN O2 NEEDED ANTIBX BRONCHODILATORS INCREASE ACTIVITY Willie Tapia MD May 27, 2017 18:06
[2017-05-27] MEDS: AZITHROMYCIN INJ 500 MG in SODIUM CHLOR 0.9% 250 ML INJ 250 ML IV SCH (18:57)
[2017-05-27] MEDS: ENOXAPARIN SODIUM 40 MG/0.4 ML SYRINGE SQ SCH (18:58)
[2017-05-27] MEDS: TIOTROPIUM BROMIDE 18 MCG INH INH SCH (20:34)
[2017-05-27] MEDS: REMOVE OLD NICODERM (NICOTINE) PATCH T-DERMAL SCH (21:00)
[2017-05-28] VITALS (25 sets, daily range): BP systolic 104–130; BP diastolic 52–71; PULSE 68–86; RESP 14–41; TEMP 97.6–98.4; O2SAT 87–96
[2017-05-28] MEDS: CHLORHEXIDINE GLUCONATE 2 % 1 PACK (2 CLOTHS)(taper/protocol) TOPICAL SCH (02:08)
[2017-05-28] MEDS: SODIUM CHLORIDE 0.9% FLUSH 10 ML FLUSH IV FLUSH PRN (02:17)
[2017-05-28] MEDS: methylPREDNISolone SOD SUCC 125 MG/2 ML VIAL IV PUSH SCH ×3 (02:17→13:28)
[2017-05-28 05:48] LABS: BLOOD GAS BASE EXCESS 9.1 mmol/L (-2-2); BLOOD GAS CARBOXYHEMOGLOBIN 1.9 % (0-4); BLOOD GAS HCO3 36 mmol/L (22-26); BLOOD GAS METHEMOGLOBIN 0.9 % (0-2); BLOOD GAS O2 HGB SATURATION 92 % (90-100); BLOOD GAS OXYGEN CONTENT 17.6 Vol % (12.0-20.0); BLOOD GAS PCO2 78 mmHg (38-42); BLOOD GAS PO2 73 mmHg (61-120); BLOOD GAS TOTAL HGB 13.6 G/DL (12.0-16.0)
[2017-05-28 05:49] LABS: CRITICAL VALUE YES; DRAW SITE RT RADIAL; FIO2 40 %; NUMBER OF ARTERIAL PUNCTURES 1; OXYGEN DEVICE BIPAP; STAT NO; ULNAR PULSE Y; VENT SETTINGS IPAP10/EPAP5
[2017-05-28] MEDS: INSULIN ASPART SUPPLEMENTAL SCALE SQ SCH ×4 (08:00→21:00)
[2017-05-28] MEDS: RESP: ALBUTEROL 2.5 MG/IPRATROPIUM 0.5 MG NEB (SCH) INH ×3 (08:02→20:17)
[2017-05-28] MEDS: PREGABALIN 25 MG CAP PO SCH ×2 (08:15→21:15)
[2017-05-28] MEDS: SODIUM CHLORIDE 0.9% FLUSH 10 ML FLUSH IV FLUSH SCH ×2 (08:16→21:16)
[2017-05-28] MEDS: acetaZOLAMIDE 250 MG TAB PO SCH ×2 (08:16→21:15)
[2017-05-28] MEDS: TIOTROPIUM BROMIDE 18 MCG INH INH SCH (08:22)
[2017-05-28] MEDS: NICOTINE 21 MG/24 HR PATCH T-DERMAL SCH (08:27)
--- NOTE | 2017-05-28 13:52 | HHI.PR ---
Subjective Remarks Patient seen and evaluated in follow-up for COPD exacerbation. Doing better. Off BiPAP and tolerating treatment for pneumonia. Complaining of some anxiety. He does say today ( as he is more clearheaded) that he was involved in hospice and had a DO NOT RESUSCITATE planned. He will like to continue his planning Objective Vitals Vital Signs Date Time Temp Pulse Resp B/P (MAP) Pulse Ox O2 Delivery O2 Flow Rate FiO2 05/28/17 08:05 95 Nasal Cannula 6.00 05/28/17 06:00 69 05/28/17 04:42 70 05/28/17 04:30 96 40 05/28/17 04:00 97.6 72 32 115/62 (79) 94 05/28/17 03:00 72 28 109/56 (73) 87 05/28/17 02:22 71 05/28/17 02:00 74 25 105/54 (71) 93 05/28/17 01:30 92 40 05/28/17 01:00 78 31 113/57 (75) 92 05/28/17 00:01 96 Bi-Pap 45 05/28/17 00:00 78 05/28/17 00:00 96 40 05/28/17 00:00 98.3 78 29 107/53 (71) 95 05/27/17 23:10 93 45 05/27/17 23:00 78 19 108/59 (75) 93 05/27/17 22:00 80 20 134/63 (86) 92 05/27/17 22:00 80 05/27/17 21:21 76 29 117/56 (76) 91 05/27/17 21:10 90 45 05/27/17 21:10 92 Bi-Pap 45 05/27/17 20:00 84 05/27/17 20:00 98.0 84 38 118/55 (76) 92 05/27/17 20:00 89 Nasal Cannula 6.00 05/27/17 19:45 93 Nasal Cannula 4.00 05/27/17 19:16 86 27 121/54 (76) 92 05/27/17 18:00 100 05/27/17 16:00 88 05/27/17 16:00 88 24 134/85 (101) 92 05/27/17 15:01 86 40 117/63 (81) 93 05/27/17 14:01 74 27 113/59 (77) 91 05/27/17 14:00 78 I/O 05/27/17 05/27/17 05/27/17 05/28/17 05/28/17 05/28/17 07:00 15:00 23:00 07:00 15:00 23:00 Intake Total 220 ml 610 ml 240 ml Output Total 600 ml 400 ml Balance -380 ml 610 ml -160 ml Intake Oral 220 ml 360 ml 240 ml IV Total 250 ml Output Urine Total 600 ml 400 ml # Voids 2 4 1 # Bowel Movements 0 0 0 Result Diagram: 05/27/17 0435 05/27/17 0435 Imaging Last Impressions Chest X-Ray 05/26/17 1349 Signed Impressions: Service Date/Time: Friday, May 26, 2017 14:39 - CONCLUSION: 1. Low lung volumes with persistent patchy left lower lobe airspace disease with at least some component of atelectasis. Richard Faye MD Objective Remarks GENERAL: This is a well-nourished, well-developed patient, in no apparent distress. CARDIOVASCULAR: Regular rate and rhythm without murmurs, gallops, or rubs. RESPIRATORY: Clear to auscultation. Breath sounds equal bilaterally. No wheezes , rales, or rhonchi. GASTROINTESTINAL: Abdomen soft, non-tender, nondistended. Normal active bowel sounds MUSCULOSKELETAL: Extremities without clubbing, cyanosis, or edema. NEURO: Alert & Oriented x4 to person, place, time, situation. Moves all ext x4 Procedures none A/P Problem List: (1) COPD exacerbation ICD Code: J44.1 - Chronic obstructive pulmonary disease with (acute) exacerbation Plan: With acute hypercapnic respiratory failure now off bipap Oxygen to wean as tolerated to baseline of 3-4 L Continue po steroids, bronchodilators by nebulizer Azithromycin po Admitted to ICU diamox echo relatively shows preserved left ventricular function and relatively good right sided heart function Pulmonary consult appreciated (2) Encephalopathy acute ICD Code: G93.40 - Encephalopathy, unspecified Plan: Resolved Likely metabolic due to hypercapnia Continue treatment for COPD (3) DM2 (diabetes mellitus, type 2) ICD Code: E11.9 - Type 2 diabetes mellitus without complications Plan: Continue with Accu-Cheks, diabetic diet Patient with diabetic neuropathy, continue Lyrica Hold metformin for now while inpatient (4) Hypochloremia ICD Code: E87.8 - Other disorders of electrolyte and fluid balance, not elsewhere classified Plan: secondary to resp failure Improving slowly continue to follow Discharge Planning likely home with hospice 1-2 days when stable Kita Bartholomew MD May 28, 2017 13:52
[2017-05-28] MEDS: clonazePAM 0.5 MG TAB PO SCH ×2 (14:00→21:16)
--- NOTE | 2017-05-28 14:00 | HHI.PR ---
Subjective Remarks ALERT SITTING AT BEDSIDE ON O2 nc less sob c/o anxiety Objective Vital Signs Date Time Temp Pulse Resp B/P (MAP) Pulse Ox O2 Delivery O2 Flow Rate FiO2 05/28/17 08:05 95 Nasal Cannula 6.00 05/28/17 06:00 69 05/28/17 04:42 70 05/28/17 04:30 96 40 05/28/17 04:00 97.6 72 32 115/62 (79) 94 05/28/17 03:00 72 28 109/56 (73) 87 05/28/17 02:22 71 05/28/17 02:00 74 25 105/54 (71) 93 05/28/17 01:30 92 40 05/28/17 01:00 78 31 113/57 (75) 92 05/28/17 00:01 96 Bi-Pap 45 05/28/17 00:00 78 05/28/17 00:00 96 40 05/28/17 00:00 98.3 78 29 107/53 (71) 95 05/27/17 23:10 93 45 05/27/17 23:00 78 19 108/59 (75) 93 05/27/17 22:00 80 20 134/63 (86) 92 05/27/17 22:00 80 05/27/17 21:21 76 29 117/56 (76) 91 05/27/17 21:10 90 45 05/27/17 21:10 92 Bi-Pap 45 05/27/17 20:00 84 05/27/17 20:00 98.0 84 38 118/55 (76) 92 05/27/17 20:00 89 Nasal Cannula 6.00 05/27/17 19:45 93 Nasal Cannula 4.00 05/27/17 19:16 86 27 121/54 (76) 92 05/27/17 18:00 100 05/27/17 16:00 88 05/27/17 16:00 88 24 134/85 (101) 92 05/27/17 15:01 86 40 117/63 (81) 93 05/27/17 14:01 74 27 113/59 (77) 91 05/27/17 14:00 78 I/O 11/29/17 11/29/17 11/29/17 11/30/17 11/30/17 11/30/17 07:00 15:00 23:00 07:00 15:00 23:00 Intake Total 220 ml 610 ml 240 ml Output Total 600 ml 400 ml Balance -380 ml 610 ml -160 ml Intake Oral 220 ml 360 ml 240 ml IV Total 250 ml Output Urine Total 600 ml 400 ml # Voids 2 4 1 # Bowel Movements 0 0 0 Result Diagram: 05/27/1743405/27/17434 Objective Remarks GENERAL: SKIN: Warm and dry. HEAD: Atraumatic. Normocephalic. EYES: Pupils equal and round. No scleral icterus. No injection or drainage. ENT: No nasal bleeding or discharge. Mucous membranes pink and moist. NECK: Trachea midline. No JVD. CARDIOVASCULAR: Regular rate and rhythm. RESPIRATORY: No accessory muscle use. Clear to auscultation. Breath sounds equal bilaterally. GASTROINTESTINAL: Abdomen soft, non-tender, nondistended. Hepatic and splenic margins not palpable. MUSCULOSKELETAL: Extremities without clubbing, cyanosis, or edema. No obvious deformities. NEUROLOGICAL: Awake and alert. No obvious cranial nerve deficits. Motor grossly within normal limits. Five out of 5 muscle strength in the arms and legs. Normal speech. PSYCHIATRIC: Appropriate mood and affect; insight and judgment normal. Assessment and Plan Assessment and Plan copd respiratory failure PNA anxiety PLAN O2 NEEDED ANTIBX BRONCHODILATORS INCREASE ACTIVITY START Willie De La O MD May 28, 2017 14:00
[2017-05-28] MEDS: AZITHROMYCIN INJ 500 MG in SODIUM CHLOR 0.9% 250 ML INJ 250 ML IV SCH (17:10)
[2017-05-28] MEDS: ENOXAPARIN SODIUM 40 MG/0.4 ML SYRINGE SQ SCH (17:12)
[2017-05-28] MEDS: REMOVE OLD NICODERM (NICOTINE) PATCH T-DERMAL SCH (21:00)
[2017-05-28] MEDS: busPIRone HCL 5 MG TAB PO SCH (21:16)
[2017-05-28] MEDS: predniSONE 20 MG TAB PO SCH (21:16)
[2017-05-29] VITALS (16 sets, daily range): BP systolic 99–146; BP diastolic 47–71; PULSE 64–80; RESP 19–32; TEMP 97.6–98.2; O2SAT 85–97
[2017-05-29] MEDS: CHLORHEXIDINE GLUCONATE 2 % 1 PACK (2 CLOTHS)(taper/protocol) TOPICAL SCH (04:00)
[2017-05-29] MEDS: RESP: ALBUTEROL 2.5 MG/IPRATROPIUM 0.5 MG NEB (SCH) INH ×2 (07:38→13:40)
[2017-05-29] MEDS: INSULIN ASPART SUPPLEMENTAL SCALE SQ SCH ×3 (08:00→18:00)
[2017-05-29] MEDS ORDERED: AZITHROMYCIN 250 MG TAB PO SCH (09:00)
[2017-05-29] MEDS: NICOTINE 21 MG/24 HR PATCH T-DERMAL SCH (09:28)
[2017-05-29] MEDS: acetaZOLAMIDE 250 MG TAB PO SCH (09:30)
[2017-05-29] MEDS: predniSONE 20 MG TAB PO SCH (09:31)
[2017-05-29] MEDS: clonazePAM 0.5 MG TAB PO SCH (09:31)
[2017-05-29] MEDS: PREGABALIN 25 MG CAP PO SCH (09:31)
[2017-05-29] MEDS: SODIUM CHLORIDE 0.9% FLUSH 10 ML FLUSH IV FLUSH SCH (09:32)
[2017-05-29] MEDS: busPIRone HCL 5 MG TAB PO SCH (11:37)
[2017-05-29] MEDS: TIOTROPIUM BROMIDE 18 MCG INH INH SCH (11:40)
[2017-05-29] MEDS ORDERED: AZIT250T3 PO (12:18)
[2017-05-29] MEDS ORDERED: PRED20 PO (12:18)
[2017-05-29] MEDS ORDERED: NICO21DI25 T-DERMAL (12:18)
--- NOTE | 2017-05-29 12:18 | HHI.DCPOC ---
Discharge Care Plan Diagnosis: (1) COPD exacerbation Goals to Promote Your Health * To prevent worsening of your condition and complications * To maintain your health at the optimal level Directions to Meet Your Goals Take your medications as prescribed Follow your dietary instruction Follow activity as directed Keep your appointments as scheduled Take your immunizations and boosters as scheduled If your symptoms worsen call your PCP, if no PCP go to Urgent Care Center or Emergency Room Smoking is Dangerous to Your Health. Avoid second hand smoke Call the 24-hour hour crisis hotline for domestic abuse at Kita Bartholomew MD May 29, 2017 12:18
--- NOTE | 2017-05-29 12:35 | HHI.DS ---
Discharge Summary Admission Date May 26, 2017 at 16:14 Discharge Date: May 29, 2017 Admitting Diagnosis PNEUMONIA, COPD EXACERBATION (1) COPD exacerbation ICD Code: J44.1 - Chronic obstructive pulmonary disease with (acute) exacerbation (2) Encephalopathy acute ICD Code: G93.40 - Encephalopathy, unspecified (3) DM2 (diabetes mellitus, type 2) ICD Code: E11.9 - Type 2 diabetes mellitus without complications (4) Hypochloremia ICD Code: E87.8 - Other disorders of electrolyte and fluid balance, not elsewhere classified Procedures none Brief History - From Admission patient is a 66 year old man with known copd on 3-4 L O2 at home. He follows up locally with the pulmonology team. Patient is admitted through the ER he came because he had increasing shortness of breath over the last several days. He had no fever or chills. He is a poor historian and appears somewhat confused. Intermittently he is quite alert and oriented however. HE initially requested hospice and to be discharged however the patient has since requested he have further treatment for acute respiratory failure. He has noted increased lower extremity edema over the last several days. He has received and evaluated with COPD and has had CO2 levels in the 90s in the past. Here his CO2 is in the 80s. He has hyperchloremia and will be admitted to the ICU for respiratory failure. CBC/BMP: 05/27/17 0435 05/27/17 0435 Significant Findings Laboratory Tests Test 05/26/17 14:10 05/26/17 16:40 05/26/17 18:30 05/26/17 19:40 Neutrophils (%) (Auto) 76.6 % (16.0-70.0) Creatinine 0.45 MG/DL (0.60-1.30) Random Glucose 118 MG/DL (74-106) Sodium Level 134 MEQ/L (136-145) Chloride Level 88 MEQ/L (98-107) Carbon Dioxide Level 44.0 MEQ/L (21.0-32.0) Anion Gap 2 MEQ/L (5-15) Troponin I LESS THAN 0.02 NG/ML Blood Gas HCO3 43 mmol/L (22-26) Blood Gas Base Excess 15.9 mmol/L (-2-2) Blood Gas Oxygen Saturation 80 % (90-100) Arterial Blood pH 7.32 (7.380-7.420) Arterial Blood Partial Pressure CO2 87 mmHG (38-42) Arterial Blood Partial Pressure O2 56 mmHG (61-120) Arterial Blood Carboxyhemoglobin 9.2 % (0-4) Urine Ketones 15 mg/dL (NEG) Test 05/27/17 04:35 05/28/17 05:36 Mean Corpuscular Hemoglobin Concent 31.9 % (32.0-36.0) Neutrophils (%) (Auto) 85.3 % (16.0-70.0) Lymphocytes # (Auto) 0.5 TH/MM3 (1.0-4.8) Creatinine 0.48 MG/DL (0.60-1.30) Random Glucose 154 MG/DL (74-106) Chloride Level 91 MEQ/L (98-107) Carbon Dioxide Level 40.9 MEQ/L (21.0-32.0) Anion Gap 4 MEQ/L (5-15) Blood Gas HCO3 36 mmol/L (22-26) Blood Gas Base Excess 9.1 mmol/L (-2-2) Arterial Blood pH 7.28 (7.380-7.420) Arterial Blood Partial Pressure CO2 78 mmHg (38-42) Imaging Last Impressions Chest X-Ray 05/26/17 1349 Signed Impressions: Service Date/Time: Friday, May 26, 2017 14:39 - CONCLUSION: 1. Low lung volumes with persistent patchy left lower lobe airspace disease with at least some component of atelectasis. Richard Faye MD PE at Discharge GENERAL: This is a well-nourished, well-developed patient, in no apparent distress. CARDIOVASCULAR: Regular rate and rhythm without murmurs, gallops, or rubs. RESPIRATORY: Clear to auscultation. Breath sounds equal bilaterally. No wheezes , rales, or rhonchi. GASTROINTESTINAL: Abdomen soft, non-tender, nondistended. Normal active bowel sounds MUSCULOSKELETAL: Extremities without clubbing, cyanosis, or edema. NEURO: Alert & Oriented x4 to person, place, time, situation. Moves all ext x4 Pt update on day of discharge Patient doing better. Respiratory status improved and is at baseline. Discharge plans discussed with patient who is agreeable Hospital Course This patient 66-year-old gentleman with known history of COPD. He was admitted for increased work of breathing with COPD exacerbation. He was started on antibiotics and steroids. He did well with this treatment and returned back to his baseline. He had hypercapnic related metabolic encephalopathy which resolved. He was discharged home to follow-up with hospice Pt Condition on Discharge: Fair Discharge Disposition: Hospice/ Home Discharge Time: > 30 minutes Discharge Instructions DIET: Follow Instructions for: As Tolerated, No Restrictions Activities you can perform: Regular-No Restrictions New Medications: Azithromycin (Azithromycin) 250 Mg Tab 500 MG PO DAILY for Infection, #7 TAB Nicotine (Eq Nicotine) 21 Mg/24 Hour Dis 1 PATCH T-DERMAL DAILY for smoking cessation, #31 PATCH Continued Medications: Amoxicillin-Clavulanate (Augmentin) 875-125 Mg Tab 1 TAB PO BID for Infection for 10 Days, #20 TAB 0 Refills Cyclosporine Opth (Restasis Opth) 0.05% Emul 1 DROP EACH EYE BID PRN for DRY EYE, #1 BOX 0 Refills Flunisolide Nasal [place] (Flunisolide Nasal [place]) 0.025 Mg/Act Naspr 2 SPRAY EACH NARE BID for Allergy Management, #1 BOTTLE 0 Refills Gemfibrozil (Gemfibrozil) 600 Mg Tab 600 MG PO BIDAC, #60 TAB 0 Refills Take 30 minutes prior to breakfast and dinner. Metformin (Metformin) 500 Mg Tab 500 MG PO BIDPC for Blood Sugar Management, #60 TAB 0 Refills With meals Prednisone (Prednisone) 20 Mg Tab 20 MG PO DIRECTED for copd, #24 TAB 0 Refills (This prescription has been renewed) Take 60 MG daily x 4 days, then 40 MG x 4 days, then 20 MG daily x 4 days. Pregabalin (Lyrica) 25 Mg Cap 25 MG PO BID, #60 CAP 0 Refills Tiotropium Inh (Spiriva Respimat Inh) 2.5 Mcg/Act Aero 2 PUFF INH DAILY for COPD, #1 INHALER 0 Refills 2.5 mcg = 1 inhalation Kita Bartholomew MD May 29, 2017 12:35
[2017-05-29] MEDS: ENOXAPARIN SODIUM 40 MG/0.4 ML SYRINGE SQ SCH (17:00)
== END 2017-05-29 19:00 | disposition hospice, home (50) | DRG 193 ==
LOC: PHED 13:30 → PHEDA 16:14 → PHICU 16:55
PROVIDERS: ADMIT Hospitalist; ATTEND Hospitalist
PROC: 5A09457 Assistance with Respiratory Ventilation, 24-96 Consecutive Hours, Continuous Positive Airway Pressure (ICD-10-PCS; principal; 2017-05-26)
DX: J18.9 Pneumonia, unspecified organism (principal); J96.21 Acute and chronic respiratory failure with hypoxia; G93.41 Metabolic encephalopathy; J96.22 Acute and chronic respiratory failure with hypercapnia; J44.0 Chronic obstructive pulmonary disease with (acute) lower respiratory infection; J44.1 Chronic obstructive pulmonary disease with (acute) exacerbation; J98.11 Atelectasis; E11.40 Type 2 diabetes mellitus with diabetic neuropathy, unspecified; Z99.81 Dependence on supplemental oxygen; E87.8 Other disorders of electrolyte and fluid balance, not elsewhere classified; E78.5 Hyperlipidemia, unspecified; F41.9 Anxiety disorder, unspecified; F17.200 Nicotine dependence, unspecified, uncomplicated; Z66 Do not resuscitate; I25.10 Atherosclerotic heart disease of native coronary artery without angina pectoris; G89.29 Other chronic pain; M54.9 Dorsalgia, unspecified; Z23 Encounter for immunization; Z79.84 Long term (current) use of oral hypoglycemic drugs
CPT/HCPCS: 36600; 71010; 80048; 80053; 81001; 82805; 82948; 83735; 83880; 84484; 85025; 87040; 87641; 90471; 90686; 93005; 93306; 94002; 94003; 94150; 94640; 94664; 96374; G0008; J0456; J1650; J1815; J2930; J7050; J7512; Q2038

== ENCOUNTER 2017-08-19 11:33 | Inpatient (IN) | payer MEDICARE, OTHER ==
[2017-08-19] VITALS (13 sets, daily range): BP systolic 102–126; BP diastolic 55–69; PULSE 86–120; RESP 20–28; TEMP 98–99.8; O2SAT 88–100
[~2017-08-19] VITALS: Ht 167.6 cm; Wt 102.5 kg
[~2017-08-19 11:33] MED LIST changes: +AUGM875T3 PO; +AZIT250T3 PO; -COMBAER INH; -FLUN25I; +FLUN25I EACH NARE; -HYDR25SU4 PR; -LEVA750T9 PO; -METF850T PO; +NICO21DI25 T-DERMAL; -NITR.4 SL; -POLY1.4S OP; +TIOT12.9 INH; -TIOT18I; -VITA50TA3 PO; -Z.0.OXYGEN INH
[2017-08-19] MEDS ORDERED: SODIUM CHLORIDE 0.9% FLUSH 10 ML FLUSH IVF PRN (12:00)
[2017-08-19] MEDS ORDERED: methylPREDNISolone SOD SUCC 125 MG/2 ML VIAL IV PUSH ONE (12:00)
--- NOTE | 2017-08-19 12:18 | RADRPT ---
EXAM DATE/TIME: 08/19/2017 11:58 [facility] COMPARISON: CHEST SINGLE AP, May 26, 2017, 14:39. INDICATIONS : Shortness of breath. MEDICAL HISTORY : Hypertension. Chronic obstructive pulmonary disease. Diabetes mellitus type II. Coronary artery d isease. SURGICAL HISTORY : None. ENCOUNTER: Initial ACUITY: 1 day PAIN SCORE: 0/10 LOCATION: Bilateral chest FINDINGS: Bibasilar and bilateral perihilar infiltrates are present, worse on the left than the right. Cardiac contours are largely obscured, but visualized portions grossly unchanged. CONCLUSION: Bilateral infiltrates. Abelardo Chu MD on August 19, 2017 at 12:15 Board Certified Radiologist. This report was verified electronically.
[2017-08-19 12:19] LABS: AUTOMATED NEUTROPHIL # 11.7 TH/MM3 (1.8-7.7); BASOPHIL % 0.4 % (0.0-2.0); HEMATOCRIT 43.2 % (39.0-51.0); HEMOGLOBIN 13.9 GM/DL (13.0-17.0); LYMPH % 4.5 % (9.0-44.0); LYMPHOCYTE # 0.6 TH/MM3 (1.0-4.8); MEAN CELL VOLUME 90.3 FL (80.0-100.0); MEAN CORPUSCULAR HEMOGLOBIN 29.1 PG (27.0-34.0); MEAN CORPUSCULAR HGB CONC 32.2 % (32.0-36.0); MEAN PLATELET VOLUME 9.4 FL (7.0-11.0); MONO % 2.4 % (0.0-8.0); MONOCYTE # 0.3 TH/MM3 (0-0.9); NEUT % 92.7 % (16.0-70.0); PLATELET COUNT 251 TH/MM3 (150-450); RED BLOOD COUNT 4.78 MIL/MM3 (4.50-5.90); RED CELL DISTRIBUTION WIDTH 15.2 % (11.6-17.2); WHITE BLOOD COUNT 12.6 TH/MM3 (4.0-11.0)
[2017-08-19] MEDS: RESP: ALBUTEROL 2.5 MG/IPRATROPIUM 0.5 MG NEB (SCH) INH ×2 (12:26→12:27)
[2017-08-19 12:29] LABS: INTERNATIONAL NORMALIZED RATIO 1.2 RATIO; PROTHROMBIN TIME - PATIENT 12.1 SEC (9.8-11.6)
[2017-08-19] MEDS ORDERED: CEFEPIME INJ 1,000 MG in SODIUM CHLORIDE 0.9% INJ 100 ML IV ONE (12:30)
[2017-08-19] MEDS ORDERED: FUROSEMIDE 40 MG/4 ML VIAL IV PUSH ONE (12:30)
[2017-08-19] MEDS ORDERED: AZITHROMYCIN INJ 500 MG in SODIUM CHLOR 0.9% 250 ML INJ 250 ML IV ONE (12:30)
--- NOTE | 2017-08-19 12:31 | RADRPT ---
EXAM DATE/TIME: 08/19/2017 12:15 [facility] COMPARISON: No previous studies available for comparison. INDICATIONS : Altered mental status RADIATION DOSE: 39.65 CTDIvol (mGy) MEDICAL HISTORY : Cardiovascular disease. Hypertension. Chronic obstructive pulmonary disease. SURGICAL HISTORY : None. ENCOUNTER: Initial ACUITY: 1 day PAIN SCALE: 0/10 LOCATION: cranial TECHNIQUE: Multiple contiguous axial images were obtained of the head. Using automated exposure control and adj ustment of the mA and/or kV according to patient size, radiation dose was kept as low as reasonably a chievable to obtain optimal diagnostic quality images. DICOM format image data is available electro nically for review and comparison. FINDINGS: CEREBRUM: The ventricles are normal for age. No evidence of midline shift, mass lesion, hemorrhage or acute in farction. No extra-axial fluid collections are seen. POSTERIOR FOSSA: The cerebellum and brainstem are intact. The 4th ventricle is midline. The cerebellopontine angle i s unremarkable. EXTRACRANIAL: The visualized portion of the orbits is intact. SKULL: The calvaria is intact. No evidence of skull fracture. CONCLUSION: Normal examination for a patient of this age. No significant change has occurred. Diego Bower MD on August 19, 2017 at 12:24 Board Certified Radiologist. This report was verified electronically.
[2017-08-19 12:35] LABS: ALBUMIN 3.5 GM/DL (3.4-5.0); ALT (GPT) 29 U/L (12-78); AST (GOT) 25 U/L (15-37); BICARBONATE 43.3 MEQ/L (21.0-32.0); BLOOD UREA NITROGEN 19 MG/DL (7-18); CALCIUM 8.8 MG/DL (8.5-10.1); CHLORIDE 89 MEQ/L (98-107); CREATININE 1.04 MG/DL (0.60-1.30); GLOMERULAR FILTRATION RATE 72 ML/MIN (>89); GLUCOSE,RANDOM 212 MG/DL (74-106); SODIUM (NA) 135 MEQ/L (136-145)
[2017-08-19 12:38] LABS: ALKALINE PHOSPHATASE 63 U/L (45-117); TOTAL BILIRUBIN ADULT 0.8 MG/DL (0.2-1.0); TROPONIN I 0.09 NG/ML (0.02-0.05)
[2017-08-19 13:21] LABS: BILIRUBIN, URINE NEG (NEG); BLOOD, URINE NEG (NEG); GLUCOSE,URINE NEG (NEG); HYALINE CAST, URINE 8 /lpf (RARE); KETONE, URINE NEG (NEG); MUCUS URINE MOD /lpf (OCC); NITRITE,URINE NEG (NEG); PH, URINE 6.5 (5.0-8.5); SQUAMOUS EPITHELIAL CELL URINE <1 /hpf (0-5); URINE COLOR YELLOW (YELLW/STRAW); URINE LEUKOCYTE ESTERASE NEG (NEG)
[2017-08-19] MEDS ORDERED: CHLORHEXIDINE GLUCONATE 2 % 1 PACK (2 CLOTHS) TOP PRN (14:45)
[2017-08-19] MEDS ORDERED: ACETAMINOPHEN 325 MG TAB PO PRN (14:45)
[2017-08-19] MEDS ORDERED: SODIUM CHLORIDE 0.9% FLUSH 10 ML FLUSH IV FLUSH PRN (14:45)
[2017-08-19] MEDS ORDERED: MISCELLANEOUS NURSING INFORMATION XX SCH (14:45)
[2017-08-19] MEDS ORDERED: RESP: ALBUTEROL 2.5 MG/IPRATROPIUM 0.5 MG NEB (PRN) INH (14:45)
[2017-08-19] MEDS: RESP: ALBUTEROL 2.5 MG/3 ML NEB (SCH) INH ×2 (14:49→14:50)
--- NOTE | 2017-08-19 14:57 | EKG ---
Date Performed: 08/19/2017 Time Performed: 11:51:20 PTAGE: 66 years EKG: SINUS TACHYCARDIA POSSIBLE LEFT ATRIAL ENLARGEMENT INDETERMINATE AXIS RIGHT BUNDLE BRANCH B LOCK ABNORMAL ECG PREVIOUS TRACING : 05/26/2017 14.00 DOCTOR: Martín Juarez Interpretating Date/Time 08/19/2017 14:55:01
--- NOTE | 2017-08-19 15:08 | PD ---
HPI Chief Complaint: Respiratory Symptoms Time Seen by Provider: 11:44 Travel History International Travel<30 days: No Contact w/Intl Traveler<30days: No History of Present Illness HPI Patient is a 66 year old male who comes in due AMS and SOB. Per EMS, patient has history of COPD and called his family member this morning stating he was SOB and he was going to take himself to the hospital. EMS states that he was found by a neighbor sitting in his car outside his house unresponsive. Patient had O2 saturation in the 70s when EMS arrived. They report his mental status improved with oxygen, but he is still confused. Patient is awake, but when he speaks, he is not coherent. He is unable to provide history. PFSH Past Medical History Cancer: No Cardiovascular Problems: Yes High Cholesterol: Yes Chest Pain: Yes COPD: Yes Coronary Artery Disease: Yes Diabetes: Yes Patient Takes Glucophage: Yes Diminished Hearing: No Endocrine: No Genitourinary: No Hypertension: Yes Musculoskeletal: Yes (CHRONIC BACK PAIN) Neurologic: No Psychiatric: No Reproductive: No Respiratory: Yes (COPD ) Immunizations Current: Yes Thyroid Disease: No Tetanus Vaccination: Unknown Influenza Vaccination: Yes Past Surgical History Abdominal Surgery: No Appendectomy: Yes Cardiac Surgery: No Ear Surgery: No Endocrine Surgery: No Eye Surgery: No Genitourinary Surgery: No Oral Surgery: No Thoracic Surgery: No Other Surgery: Yes (PIPE EMBEDDED IN HEAD AND REMOVED) Social History Alcohol Use: No Tobacco Use: Yes Substance Use: No Allergies-Medications (Allergen,Severity, Reaction): Coded Allergies: aspirin (Verified Allergy, Severe, Hives, 08/19/17) tramadol (Verified Allergy, Severe, Hives, 08/19/17) Uncoded Allergies: NSAIDS (Allergy, Severe, Hives, 11/26/11) "ALL NSAIDS, I CAN'T REMEMBER ALL OF THEM" Reported Meds & Prescriptions Reported Meds & Active Scripts Active Reported Spiriva Respimat Inh (Tiotropium Inh) 2.5 Mcg/Act Aero 2 Puff INH DAILY 2.5 mcg = 1 inhalation Gemfibrozil 600 Mg Tab 600 Mg PO BIDAC Take 30 minutes prior to breakfast and dinner. Flunisolide Nasal [place] (Flunisolide) 0.025 Mg/Act Naspr 2 [place] EACH NARE BID Restasis Opth (Cyclosporine Opth) 0.05% Emul 1 Drop EACH EYE BID PRN Lyrica (Pregabalin) 25 Mg Cap 25 Mg PO BID Metformin (Metformin HCl) 500 Mg Tab 500 Mg PO BIDPC With meals Review of Systems ROS Limitations: Altered Mental Status Physical Exam Narrative GENERAL: Lethargic, but awakens easily. SKIN: Focused skin assessment warm/dry. Skin is warm, areas of sloughing. HEAD: Atraumatic. Normocephalic. EYES: Pupils equal and round. No scleral icterus. EOMI. ENT: Mucous membranes dry. NECK: Trachea midline. No JVD. CARDIOVASCULAR: Regular rate and rhythm. No murmur appreciated. RESPIRATORY: No accessory muscle use. Decreased breath sounds bilaterally with occasional wheezes. GASTROINTESTINAL: Abdomen soft, non-tender, nondistended. MUSCULOSKELETAL: No obvious deformities. No clubbing. No cyanosis. 2+ pitting edema bilateral lower extremities. NEUROLOGICAL: Sleeping, but awakens easily. No obvious cranial nerve deficits. Moves all of his extremities. Data Data Last Documented VS Vital Signs Date Time Temp Pulse Resp B/P (MAP) Pulse Ox O2 Delivery O2 Flow Rate FiO2 08/19/17 12:34 111 24 102/60 (74) 96 BiPAP 80 08/19/17 11:47 15.00 08/19/17 11:41 98.2 Orders Orders Complete Blood Count With Diff (08/19/17 11:46) Comprehensive Metabolic Panel (08/19/17 11:46) B-Type Natriuretic Peptide (08/19/17 11:46) Act Partial Throm Time (Ptt) (08/19/17 11:46) Prothrombin Time / Inr (Pt) (08/19/17 11:46) Troponin I (08/19/17 11:46) Arterial Blood Gas (Abg) (08/19/17 11:46) Urinalysis - C+S If Indicated (08/19/17 11:46) Influenzae A/B Antigen (08/19/17 11:46) Iv Access Insert/Monitor (08/19/17 11:46) Electrocardiogram (08/19/17 11:46) Ecg Monitoring (08/19/17 11:46) Oximetry (08/19/17 11:46) Oxygen Administration (08/19/17 11:46) Chest, Single Ap (08/19/17 11:46) Sodium Chloride 0.9% Flush (Ns Flush) (08/19/17 12:00) Methylprednisolone So Succ Inj (Solumedr (08/19/17 12:00) Albuterol-Ipratropium Neb (Duoneb Neb) (08/19/17 12:00) Lactic Acid (08/19/17 11:46) Ct Brain W/O Iv Contrast(Rout) (08/19/17 ) Furosemide Inj (Lasix Inj) (08/19/17 12:30) Cefepime Inj (Maxipime Inj) (08/19/17 12:30) Azithromycin Inj (Zithromax Inj) (08/19/17 12:30) Albuterol Neb (Albuterol Neb) (08/19/17 14:00) Admit Order (Ed Use Only) (08/19/17 ) Labs Laboratory Tests Test 08/19/17 11:17 08/19/17 13:00 08/19/17 13:15 White Blood Count 12.6 TH/MM3 Red Blood Count 4.78 MIL/MM3 Hemoglobin 13.9 GM/DL Hematocrit 43.2 % Mean Corpuscular Volume 90.3 FL Mean Corpuscular Hemoglobin 29.1 PG Mean Corpuscular Hemoglobin Concent 32.2 % Red Cell Distribution Width 15.2 % Platelet Count 251 TH/MM3 Mean Platelet Volume 9.4 FL Neutrophils (%) (Auto) 92.7 % Lymphocytes (%) (Auto) 4.5 % Monocytes (%) (Auto) 2.4 % Eosinophils (%) (Auto) 0.0 % Basophils (%) (Auto) 0.4 % Neutrophils # (Auto) 11.7 TH/MM3 Lymphocytes # (Auto) 0.6 TH/MM3 Monocytes # (Auto) 0.3 TH/MM3 Eosinophils # (Auto) 0.0 TH/MM3 Basophils # (Auto) 0.0 TH/MM3 CBC Comment DIFF FINAL Differential Comment Prothrombin Time 12.1 SEC Prothromb Time International Ratio 1.2 RATIO Activated Partial Thromboplast Time 21.1 SEC Blood Urea Nitrogen 19 MG/DL Creatinine 1.04 MG/DL Random Glucose 212 MG/DL Total Protein 7.0 GM/DL Albumin 3.5 GM/DL Calcium Level 8.8 MG/DL Alkaline Phosphatase 63 U/L Aspartate Amino Transf (AST/SGOT) 25 U/L Alanine Aminotransferase (ALT/SGPT) 29 U/L Total Bilirubin 0.8 MG/DL Sodium Level 135 MEQ/L Potassium Level 3.9 MEQ/L Chloride Level 89 MEQ/L Carbon Dioxide Level 43.3 MEQ/L Anion Gap 3 MEQ/L Estimat Glomerular Filtration Rate 72 ML/MIN Lactic Acid Level 1.9 mmol/L Troponin I 0.09 NG/ML B-Type Natriuretic Peptide 27 PG/ML Urine Color YELLOW Urine Turbidity CLEAR Urine pH 6.5 Urine Specific [place] 1.021 Urine Protein 100 mg/dL Urine Glucose (UA) NEG mg/dL Urine Ketones NEG mg/dL Urine Occult Blood NEG Urine Nitrite NEG Urine Bilirubin NEG Urine Urobilinogen 2.0 MG/DL Urine Leukocyte Esterase NEG Urine RBC 1 /hpf Urine WBC 1 /hpf Urine Squamous Epithelial Cells <1 /hpf Urine Hyaline Casts 8 /lpf Urine Mucus MOD /lpf Microscopic Urinalysis Comment CULT NOT INDICATED Blood Gas Puncture Site RT RADIAL Blood Gas Patient Temperature 98.6 Blood Gas HCO3 45 mmol/L Blood Gas Base Excess 17.1 mmol/L Blood Gas Oxygen Saturation 77 % Arterial Blood pH 7.27 Arterial Blood Partial Pressure CO2 101 mmHg Arterial Blood Partial Pressure O2 53 mmHG Arterial Blood Oxygen Content 14.6 Vol % Arterial Blood Carboxyhemoglobin 8.5 % Arterial Blood Methemoglobin 0.7 % Blood Gas Hemoglobin 13.4 G/DL Oxygen Delivery Device BIPAP Blood Gas Ventilator Setting 15 IPAP/5 EPAP Blood Gas Inspired Oxygen 60 % [facility] Medical Decision Making Medical Screen Exam Complete: Yes Emergency Medical Condition: Yes Medical Record Reviewed: Yes Interpretation(s) ECG shows sinus tachycardia, RBBB Differential Diagnosis COPD vs CHF vs pneumonia Narrative Course Patient is a 66 year old male RONDA after he was found in his car unresponsive on his driveway. Patient was hypoxic and is improving with oxygen. He was placed on BIPAP. Given 3 duonebs and steroids. IV established, labs sent. Labs concerning for elevated WBC count and slight elevation of Troponin, likely due to hypoxia. CXR shows bilateral infiltrates. [facility] was here and says that he is on their service, but he does not have a DNR and very little information is available about what he would like to have done. I called his nephew, who per Hospice, is listed as his proxy, who says they would want his pneumonia treated, but it is his mother who makes decisions for the patient. I tried to call her, but there was no answer. Blood gas shows a pH of 7.267 and CO2 of 101. Patient given additional albuterol treatments due with improvement of his oxygen saturation. He will be admitted for further management. Critical Care Narrative Aggregate critical care time was 45 minutes. Time to perform other separately billable procedures was not included in the critical care time. My time did not include minutes spent treating any other patients simultaneously or on activities that did not directly contribute to the patient's treatment. The services I provided to this patient were to treat and/or prevent clinically significant deterioration that could result in: serious illness or . I provided critical care services requiring my management, as noted below: Chart data review, documentation time, medication orders and management, vital sign assessments/reviewing monitor data, ordering and reviewing lab tests, ordering and interpreting/reviewing x-rays and diagnostic studies, care of the patient and discussion of the patient with the admitting physicians. Diagnosis Primary Impression: COPD exacerbation Additional Impressions: Pneumonia Qualified Codes: J18.9 - Pneumonia, unspecified organism Respiratory acidosis Hypercapnemia Admitting Information Admitting Physician Requests: Admit Makenna Penny MD Aug 19, 2017 15:08
[2017-08-19] MEDS: SODIUM CHLOR 0.9% 1000 ML INJ 1,000 ML IV SCH (15:16)
[2017-08-19] MEDS: ENOXAPARIN SODIUM 40 MG/0.4 ML SYRINGE SQ SCH (15:41)
--- NOTE | 2017-08-19 16:12 | PD.CONS ---
Consult Service Palliative Care . Consult Requested By Dr. Candido Rene . Primary Care Physician [facility] . Reason for Consultation a. To assist with evaluation and management of symptoms including: dyspnea ; confusion; neuropathic lower extremity pain b. To assist medical decision maker(s) with: better understanding of current medical conditions; weighing benefits/burdens of medical treatment options; making medical treatment decisions. . HPI History of Present Illness Mr. gonzalez is a 66 y/o with a known past history of 02 dependent COPD; peripheral neuropathy; DM; hyperlipidemia who is currently enrolled with [facility] who was brought to the ED today (08/19/17) via EMS after found minimally responsive in his car. The patient had apparently left a message for family members that he was SOB and was going to drive himself to the hospital. Family called hospice staff. Hospice enquired with local hospitals. When it was apparent he was at none of the local emergency departments, they went to the house and found him in his car slumped over, minimally responsive. Neighbors had already contacted EMS who arrived within minutes. EMS reported that O2 saturations were in the 70s when they arrived. Mental status improved with oxygen but he remained confused. This will be the patient's 3rd acute inpatient hospitalization since 03/04/17. Other hospitalizations were as follows: 03/04/17 - 03/10/17 for COPD 05/26/17 - 05/29/17 for COPD/pneumonia The patient was enrolled with [facility] on 05/29/17 when he opted for comfort measures only. Hospice notes indicate that the patient has been living alone and just managing to get by. He has a walker but often does not use it. He ambulates around the house leaning on furniture and perry. He really needs 02 continuously but often removes it. He gets confused and even hallucinates when he becomes hypoxic. He intermittently leaves 02 on when he smokes placing himself and others in danger. He insists on going out in his car; he gets his own groceries. He puts an 02 tank in the back of his car and sometimes forgets to use the 02 while driving. He has been counseled by hospice staff repeatedly and hospice has tried to convince him to accept placement or help. He has refused to allow family to visit him. He is also poorly compliant with medication. His peripheral neuropathy has been a large concern for him -- he frequently calls hospice to them know his legs and feet feel like they are on fire. He is followed at the outpatient [place] [facility] and was supposed to have a f/u appt today for his neuropathy. He was hoping for an increase in his Lyrica. Upon arrival in the emergency department, patient was verbal but not coherent. Initial vital signs in the emergency department were as follows --> temperature 98.2; pulse 120; respiratory rate 28; blood pressure 109/55; pulse oximetry 95% on a nonrebreather mask. Initial physical exam by the emergency communications department chairperson noted the following --> patient was lethargic but awakened easily. There were decreased breath sounds bilaterally with occasional wheezing. There was no use of accessory muscles. There is 2+ pitting edema in the lower extremities. The remainder the physical exam was unremarkable. Initial diagnostic testing showed the following: * CBC showed WBC 12.6; hemoglobin 13.9; platelet count 251 * Coagulation profile showed PT 12.1; INR 1.2; PTT 21.1 * Chemistry profile showed UA and 19; creatinine 1.04; glucose 212; calcium 8.8 ; sodium 135; potassium 3.9; chloride 89; CO2 43.3; anion gap 3; GFR 72; lactic acid level I.9 * Liver function studies showed total bilirubin 0.8; AST 25; ALT 29; I'll: Phosphatase 63; total protein 7.0; albumin 3.5 * Cardiac serology show troponin 0.09; B-type natriuretic peptide 27 * Urinalysis was unremarkable except for protein at 100 mg/dL * Arterial blood gases on BiPAP at 60% FiO2 showed pH 7.27; PCO2 101; PO2 53; bicarbonate 45; base excess 17.1 * EKG showed sinus tachycardia and a right bundle branch block pattern * Chest x-ray showed bilateral infiltrates. * CT of the head was unremarkable Patient was placed on BiPAP in the emergency department. He was given nebulizer treatments and started on intravenous steroids. Critical care was consulted. The patient was ultimately admitted to the medical intensive care unit. When I first visited the patient in the emergency department he was quite lethargic. I can awaken him for brief periods of time but he would not answer my questions. When I later visited him in the intensive care unit he was awake and could answer some questions appropriately. He was able to confirm the wishes expressed in his advance directives indicating he would want his nephew-- Lg--to serve as his primary health care decision-maker. He also confirmed the desire for "no code" status. His comments were witnessed by ICU nurses. The patient indicated he had mild to moderate lower extremity neuropathic pain at the time but was unable to further quantify or qualify that pain.. He let me know he wanted to use minimal amounts of opiate analgesics. . . . Function/Cognitive Trajectory As noted above, patient manages to live alone and is just barely taking care of his ADLs. He often forgets to use his 02 and becomes confused and even hallucinates. His neuropathic pain in his lower extremities has been severe. He is unsteady on his feet. He still gets out of the house and drives himself but this is probably unsafe. . Review of Systems ROS Limitations: Clinical Condition (patient remains intermittently confused and on BiPAP. He can answer some questions appropriately. Review of systems is taken mostly from hospital records and hospice records.) Constitutional: COMPLAINS OF: Fatigue, Weight gain, Pain, Generalized weakness , DENIES: Fever, Weight loss, Change in appetite Eyes: COMPLAINS OF: Vision loss (wears glasses) Ears, nose, mouth, throat: DENIES: Hearing loss, Oral lesions Respiratory: COMPLAINS OF: Apneas, Cough, Wheezing, Sputum production, Shortness of breath, DENIES: Hemoptysis Cardiovascular: COMPLAINS OF: Chest pain Musculoskeletal: COMPLAINS OF: Back pain, Neck pain Hematologic/Lymphatics: COMPLAINS OF: Bruising Neurologic: COMPLAINS OF: Abnormal gait, Poor Balance, DENIES: Seizures, Tremor Psychiatric: COMPLAINS OF: Confusion, Hallucinations Past Family Social History Coded Allergies: aspirin (Verified Allergy, Severe, Hives, 08/19/17) tramadol (Verified Allergy, Severe, Hives, 08/19/17) Uncoded Allergies: NSAIDS (Allergy, Severe, Hives, 11/26/11) "ALL NSAIDS, I CAN'T REMEMBER ALL OF THEM" Past Medical History COPD Recurrent Pneumonia Type II DM HTN Diabetic neuropathy Hyperlipidemia Past Surgical History * He had some type of pipe embedded in his head which was removed surgically. * He has had neck and back surgeries. . Reported Medications Pre-hospitalization medications under hospice care were listed as follows but patient was not always compliant with meds per hospice staff: Cyclosporine eyedrops 0.05; one drop twice daily when necessary both eyes Flunisolide nasal spray; 2 sprays twice a day Gemfibrozil 600 mg; one by mouth twice daily Ipratropium/albuterol nebulizers every 2 hours when necessary dyspnea Lorazepam 0.5 mg; one to 2 tabs every 4 hours as needed for moderate to severe anxiety Metformin 500 mg uncertain frequency Oxycodone 5 mg tablet; one to 2 tabs every 4 hours as needed for moderate to severe pain/shortness of breath Oxygen at 2 L/m via nasal cannula Pregabalin 25 mg; one by mouth twice daily Sennosides/docusate; 1-2 tabs every 12 hours when necessary constipation Tiotropium bromide 18 mcg; 2 puffs daily . Current Medications Medications (Trade) Dose Ordered Sig/Laura Route Start Time Stop Time Status Last Admin Sodium Chloride 1,000 ml @ 25 mls/hr Q24H IV 08/19/17 15:00 08/19/17 15:16 (NS Flush) 2 ml UNSCH PRN IV FLUSH 08/19/17 14:45 (NS Flush) 2 ml BID IV FLUSH 08/19/17 21:00 (Tylenol) 650 mg Q6H PRN PO 08/19/17 14:45 (Duoneb Neb) 1 ampule Q4HR NEB NEB 08/19/17 16:00 (Duoneb Neb) 1 ampule Q2HR NEB PRN INH 08/19/17 14:45 (Peridex 0.12% Liq) 15 ml BID@08,20 MT 08/19/17 20:00 (Pepcid Inj) 20 mg Q12HR IV PUSH 08/19/17 21:00 (Lovenox Inj) 40 mg Q24H SQ 08/19/17 16:00 08/19/17 15:41 Miscellaneous Information 1 Q361D XX 08/19/17 14:45 (Chlorhexidine 2% Cloth) 3 pack Taper DAILY@04 TOP 08/20/17 04:00 08/16/18 03:59 (Chlorhexidine 2% Cloth) 3 pack UNSCH PRN TOP 08/19/17 14:45 (SoluMEDROL INJ) 80 mg Q8HR IV PUSH 08/19/17 22:00 Cefepime HCl 1000 mg/Sodium Chloride 100 ml @ 200 mls/hr Q8H IV 08/19/17 22:00 Azithromycin 500 mg/Sodium Chloride 250 ml @ 250 mls/hr Q24H IV 08/20/17 15:00 . Family History Patient's father in 1979 from pneumonia. He had one long. Patient's mother had epilepsy. . Substance Use Tobacco: Long history of tobacco abuse . Ongoing tobacco use (a few cigarettes a day) in spite of COPD Alcohol: Patient has long history of alcohol and drug abuse. He is proud that he is clean and sober after 10 years in AA/NA. Prescription med abuse: Patient has long history of alcohol and drug abuse. He is proud that he is clean and sober after 10 years in AA/NA. Illicits: Patient has long history of alcohol and drug abuse. He is proud that he is clean and sober after 10 years in AA/NA. . Psychosocial History Patient is originally from [place]. He moved to [place] to be in the warm weather. High school education. He is a [employer] . He worked for a [employer] and also worked in [employer]. Patient was once. This marriage was reportedly an old. There are no children. He has a sister and a nephew who live in [facility]. According to them he has "burned a lot of bridges with family." He has no family support in this area. He has an intermittent roommate. Polysubstance abuse had been a problem. He has been "clean and sober" after 10 years in AA and NA. . Spiritual/Cultural Factors Former Jain -- now identifies as "Quaker." Has appreciated hospice flight surveyor visits. . Living Will: Copy in medical record Health Care Surrogate: Copy in medical record Durable Power of Reservations Sales Supervisor: Copy in medical record Date completed: 05/31/2010 -- [facility] . Health Care Surrogate(s): Lg Cook (Nephew) is primary health care surrogate [phone] Lenore Leary (sister) is alternate [phone] . Documented care wishes: Living will states he would want no life prolonging interventions should he have an end stage condition, persistent vegetative state, or terminal illness. He has added -- "No assistance at all. No organ donor, or transfusions." He also indicated that, "I want my preferences, expressed above in this living will, to be followed strictly, even if the person who is making decision for me things this is not in my best interest." . Today's verbally stated goals: While in the emergency department, the patient was unable to address his health care goals and preferences. When he was more awake and in the medical intensive care unit. He verbally confirmed the wishes stated in his advance directive. . Family/friends goals: I was able to speak to the patient's nephew--Lg Trevino-- by telephone this evening. Mr. Trevino indicated that the patient had had several conversations with him regarding health care goals and preferences. Mr. Trevino confirms the wishes that are in the advance directive and that the patient has personally stated. Mr. Trevino agrees with DNR status. . Ethical and Legal Issues Patient was initially incapacitated to make his own healthcare decisions. With oxygenation improved under BiPAP he is now more coherent. He has confirmed the goals and wishes in his advance directive. I anticipate his capacity will improve even more. If there is lingering confusion we should confirm major decisions with the patient's health care surrogate. . Physical Exam Vital Signs Date Time Temp Pulse Resp B/P (MAP) Pulse Ox O2 Delivery O2 Flow Rate FiO2 08/19/17 15:43 98.1 102 26 126/55 (78) 96 BiPAP 80 08/19/17 14:53 98.0 89 20 112/60 (77) 96 BiPAP 80 08/19/17 12:34 111 24 102/60 (74) 96 BiPAP 80 08/19/17 12:00 94 80 08/19/17 11:47 96 Non-Rebreather 15.00 100 08/19/17 11:47 26 96 Non-Rebreather 15.00 100 08/19/17 11:42 120 28 96 Non-Rebreather 15.00 100 08/19/17 11:41 98.2 120 28 109/55 (73) 95 . 08/19/17 08/20/17 19:00 07:00 Intake Total 350 ml Balance 350 ml Intake IV Total 350 ml . Exam CONSTITUTIONAL/GENERAL: This is an obese male. He was minimally responsive and hard to awaken in the emergency department but is now awake and talkative in the medical ICU. He is quite difficult to understand due to a combination of his speech and the BiPAP mask which she needs to keep on. TUBES/LINES/DRAINS: Peripheral IV. BiPAP SKIN: No jaundice, rashes, or lesions. Ecchymoses on upper extremities. No wounds seen anteriorly. Skin temperature appropriate. Not diaphoretic. HEAD: Atraumatic. Normocephalic. EYES: Pupils equal and round and reactive. Extraocular motions intact. No scleral icterus. No injection or drainage. Fundi not examined. ENT: Hearing grossly normal. Nose without bleeding or purulent drainage. Throat without visible erythema, exudates, masses, or lesions. NECK: Trachea midline. Supple, nontender. No palpable thyroid enlargement or nodularity. CARDIOVASCULAR: Regular, rapid rate and rhythm without murmurs, gallops, or rubs. No JVD. Peripheral pulses symmetric. RESPIRATORY/CHEST: Tachypneic, but symmetric, unlabored respirations. Breath sounds equal bilaterally but quite diminished.. Wheezing heard bilaterally. GASTROINTESTINAL: Abdomen obese, soft, non-tender, nondistended. No hepato- splenomegaly, or palpable masses. No guarding. Bowel sounds present. GENITOURINARY: Without palpable bladder distension. Condom catheter clubbing cyanosis MUSCULOSKELETAL: Extremities without clubbing, cyanosis. There is some 1+ edema bilaterally in the lower extremities with slight erythema around the lower calves. No joint tenderness or effusion noted. No calf tenderness. No mottling. LYMPHATICS: No palpable cervical or supraclavicular adenopathy. NEUROLOGICAL: Initially quite lethargic. Began to wake up after he was on BiPAP treatments. . Follows commands. Answers simple questions appropriately. Speech difficult to understand particularly with BiPAP mask in place. Moves all extremities. PSYCHIATRIC: No obvious anxiety/depression. No apparent hallucinations or other psychotic thought process. . Diagnostic Tests Laboratory Laboratory Tests Test 08/19/17 11:17 08/19/17 13:00 08/19/17 13:15 White Blood Count 12.6 TH/MM3 (4.0-11.0) Red Blood Count 4.78 MIL/MM3 (4.50-5.90) Hemoglobin 13.9 GM/DL (13.0-17.0) Hematocrit 43.2 % (39.0-51.0) Mean Corpuscular Volume 90.3 FL (80.0-100.0) Mean Corpuscular Hemoglobin 29.1 PG (27.0-34.0) Mean Corpuscular Hemoglobin Concent 32.2 % (32.0-36.0) Red Cell Distribution Width 15.2 % (11.6-17.2) Platelet Count 251 TH/MM3 (150-450) Mean Platelet Volume 9.4 FL (7.0-11.0) Neutrophils (%) (Auto) 92.7 % (16.0-70.0) Lymphocytes (%) (Auto) 4.5 % (9.0-44.0) Monocytes (%) (Auto) 2.4 % (0.0-8.0) Eosinophils (%) (Auto) 0.0 % (0.0-4.0) Basophils (%) (Auto) 0.4 % (0.0-2.0) Neutrophils # (Auto) 11.7 TH/MM3 (1.8-7.7) Lymphocytes # (Auto) 0.6 TH/MM3 (1.0-4.8) Monocytes # (Auto) 0.3 TH/MM3 (0-0.9) Eosinophils # (Auto) 0.0 TH/MM3 (0-0.4) Basophils # (Auto) 0.0 TH/MM3 (0-0.2) CBC Comment DIFF FINAL Differential Comment Prothrombin Time 12.1 SEC (9.8-11.6) Prothromb Time International Ratio 1.2 RATIO Activated Partial Thromboplast Time 21.1 SEC (24.3-30.1) Blood Urea Nitrogen 19 MG/DL (7-18) Creatinine 1.04 MG/DL (0.60-1.30) Random Glucose 212 MG/DL (74-106) Total Protein 7.0 GM/DL (6.4-8.2) Albumin 3.5 GM/DL (3.4-5.0) Calcium Level 8.8 MG/DL (8.5-10.1) Alkaline Phosphatase 63 U/L (45-117) Aspartate Amino Transf (AST/SGOT) 25 U/L (15-37) Alanine Aminotransferase (ALT/SGPT) 29 U/L (12-78) Total Bilirubin 0.8 MG/DL (0.2-1.0) Sodium Level 135 MEQ/L (136-145) Potassium Level 3.9 MEQ/L (3.5-5.1) Chloride Level 89 MEQ/L (98-107) Carbon Dioxide Level 43.3 MEQ/L (21.0-32.0) Anion Gap 3 MEQ/L (5-15) Estimat Glomerular Filtration Rate 72 ML/MIN (>89) Lactic Acid Level 1.9 mmol/L (0.4-2.0) Troponin I 0.09 NG/ML (0.02-0.05) B-Type Natriuretic Peptide 27 PG/ML (0-100) Urine Color YELLOW (YELLW/STRAW) Urine Turbidity CLEAR (CLEAR) Urine pH 6.5 (5.0-8.5) Urine Specific [place] 1.021 (1.002-1.035) Urine Protein 100 mg/dL (NEG-TRACE) Urine Glucose (UA) NEG mg/dL (NEG) Urine Ketones NEG mg/dL (NEG) Urine Occult Blood NEG (NEG) Urine Nitrite NEG (NEG) Urine Bilirubin NEG (NEG) Urine Urobilinogen 2.0 MG/DL (LESS THAN Urine Leukocyte Esterase NEG (NEG) Urine RBC 1 /hpf (0-3) Urine WBC 1 /hpf (0-5) Urine Squamous Epithelial Cells <1 /hpf (0-5) Urine Hyaline Casts 8 /lpf (RARE) Urine Mucus MOD /lpf (OCC) Microscopic Urinalysis Comment CULT NOT INDICATED Blood Gas Puncture Site RT RADIAL Blood Gas Patient Temperature 98.6 Blood Gas HCO3 45 mmol/L (22-26) Blood Gas Base Excess 17.1 mmol/L (-2-2) Blood Gas Oxygen Saturation 77 % (90-100) Arterial Blood pH 7.27 (7.380-7.420) Arterial Blood Partial Pressure CO2 101 mmHg (38-42) Arterial Blood Partial Pressure O2 53 mmHG (61-120) Arterial Blood Oxygen Content 14.6 Vol % (12.0-20.0) Arterial Blood Carboxyhemoglobin 8.5 % (0-4) Arterial Blood Methemoglobin 0.7 % (0-2) Blood Gas Hemoglobin 13.4 G/DL (12.0-16.0) Oxygen Delivery Device BIPAP Blood Gas Ventilator Setting 15 IPAP/5 EPAP Blood Gas Inspired Oxygen 60 % . Result Diagram: 08/19/17 1117 08/19/17 1117 Microbiology Microbiology Date/Time Source Procedure Growth Status 08/19/17 13:00 Nasal Washing Influenza Types A,B Antigen (CARISSA) - Final NEGATIVE FOR FLU A AND B ANTIGEN.... Complete . Imaging Last Impressions Chest X-Ray 08/19/17 1146 Signed Impressions: Service Date/Time: Saturday, August 19, 2017 11:58 - CONCLUSION: Bilateral infiltrates. Abelardo Chu MD Head CT 08/19/17 0000 Signed Impressions: Service Date/Time: Saturday, August 19, 2017 12:15 - CONCLUSION: Normal examination for a patient of this age. No significant change has occurred. Diego Bower MD . Procedures BiPAP . Other * Echocardiogram 05/27/17 --> EF 45-50%. Moderate LVH. Mild to moderately dilated left and right atria. thickened atrial septum most c/w lipomatous atrial septum. Possible atrila level shunt seen in color flow Doppler. . Patient/Family Conference Present at Family Conference: Spoke with patient's nephew-- Lg Trevino--the healthcare surrogate via phone for approximately 20 minutes. . Family Conference Time (mins): 20 Family Conference Location: Telephone Issues Discussed: I updated healthcare surrogate regarding the patient's current status. We discussed the patient's advanced directives and health care surrogate confirmed the patient's desire for "no code" status. We discussed the patient's desire for independence and how this has become quite challenging as he is becoming weaker and less able to care for himself. We spoke about how surviving this hospitalization is likely. We may be able to care for him in a hospice care Center for a few days after discharge. Following that, it will be nice to find some sort of placement where the patient could be safer and better cared for. The health care surrogate is planning a and will be arriving next Thursday. * Palliative care contact information provided . Assessment and Plan Disease Oriented Problem List: (1) Acute and chronic respiratory failure (2) Hypercapnemia (3) Respiratory acidosis (4) COPD exacerbation (5) Pneumonia (6) Encephalopathy acute (7) DM2 (diabetes mellitus, type 2) (8) Diabetic neuropathy Symptom Scale: (1) Pain 0-10 Scale: Unable to quantify Comment: Patient patient's pain is primarily neuropathic pain in the lower extremities. This has been getting worse. He uses pregabalin at home as well as oxycodone 5-10 mg immediate release every 4 hours when necessary. . (2) Dyspnea 0-10 Scale: 10 Comment: Dyspnea was severe today. (3) Confusion 0-10 Scale: 10 (patient was lethargic and minimally responsive earlier today. That seems to be clearing) Pertinent Non-Medical Issues Psychosocial: Patient has no real local psychosocial support. He has a sister and a nephew in [facility] who check in on him. Spiritual: He is from a Jain tradition but currently identifies himself as "Quaker." Has enjoyed hospice flight surveyor visits. Legal: Completed advanced directive is now on chart. Health care surrogate is his nephew--Lg Trevino Ethical issues impacting care: Patient was incapacitated to make his own healthcare decisions on emergency department admission. He is rapidly regaining capacity. . Important Contacts Lg Cook (Nephew and primary health care surrogate) [phone] Lenorebethanie Leary (sister and alternate health care surrogate) [phone] . Prognosis Patient has severe COPD. He has required multiple hospitalizations over the last year. He is now a hospice patient and decline has been noted since hospice enrollment in May 2017. expectancy is thought to be 6 months or less. . Code Status: No Code Plan == Code Status: NO CODE (per living will; confirmed verbally by patient; and confirmed via telephone conversation with patients' health care surrogate). == Decision making: Patient was initially incapacitated in the ED to make his own healthcare decisions. With oxygenation improved under BiPAP he is now more coherent. He has confirmed the goals and wishes in his advance directive. I anticipate his capacity will improve even more. If there is lingering confusion we should confirm major decisions with the patient's health care surrogate. == Goals of treatment: Will continue with aggressive care short of resuscitation. Pt appears to endorse antibioitcs; steroids, nebulizer treatments, etc. == Symptoms: * Dyspnea: Probably a COPD exacerbation complicated by pneumonia. There are bilateral infiltrates. We'll continue with BiPAP, steroids, IV antibiotics. * Confusion: probably due to hypoxia. Improving with oxygenation. * Neuropathy pain in lower extremities: This is a chronic problem for the patient for which he has been on pregabalin. He has also been using 5-10 mg of oxycodone every 4 hours when necessary. We may need to restart this here in the hospital once he is awake and alert. == Disposition: It has become increasingly unsafe for patient to care for himself. He has been very stubborn . He wants to remain independent and at home. this has been challenging for hospice nursing and hospice social work. Once stabilized, we can probably continue many of his treatments in a hospice care center bed and try to get him to accept some sort of placement following that.. == Patient's health care surrogate -- Lg Trevino -- is flying down from [facility] and hopes to be in the [facility] on Thursday08/24/17 == Spoke with lime kiln worker to obtain information on advance directives and family and functional status while under hospice care. Spoke with health care surrogate. Case discussed via phone with energy consultant. == Palliative care will continue to follow to assist with symptom management and to further clarify goals of medical treatment as the clinical course evolves. . Thank you for the opportunity to participate in the care of Mr. Gonzalez. . Attestation To help prompt me to consider important information that might be impacting today's encounter and assessment, information from prior notes written by myself or my colleagues may have been "brought forward" into today's note. My signature on this note, however, is an attestation that I personally performed the exam, history, and/or decision-making noted today, and, unless otherwise indicated, the interactions with patient, family, and staff as well as the review of records all occurred today. I also attest that the listed assessment and stated plan reflect my best clinical judgment today based on the combination of historical information, prior notes, and today's exam/ interactions. When time spent is documented, it refers only to time spent today by the signer, or if indicated, combined time spent today by collaborating physician/nurse practitioner. . Devin Gomez MD Aug 19, 2017 16:12
[2017-08-19] MEDS: RESP: ALBUTEROL 2.5 MG/IPRATROPIUM 0.5 MG NEB (SCH) NEB ×2 (17:15→23:01)
--- NOTE | 2017-08-19 17:50 | HHI.HP ---
HPI Service Critical Care Medicine Primary Care Physician [facility] Admission Diagnosis COPD, pneumonia, CO2 narcosis Diagnosis: Travel History International Travel<30 Days: No Contact w/Intl Traveler <30 Da: No Traveled to Known Affected Are: No History of Present Illness History of Present Illness HPI Patient is a 66 year old male who comes in due AMS and SOB. Per EMS, patient has history of COPD and called his family member this morning stating he was SOB and he was going to take himself to the hospital. EMS states that he was found by a neighbor sitting in his car outside his house unresponsive. Patient had O2 saturation in the 70s when EMS arrived. They report his mental status improved with oxygen, but he was still confused. Patient was noted to have acute on the story acidosis on an ABG done in the ER following his arrival with PCO2 with 101. He was placed on BiPAP. His brother was contacted by ER physician and who wanted to continue aggressive care at this time though patient had been on hospice services his CODE STATUS was not clear. Patient was accepted for admission by critical care medicine service. When I evaluated the patient in the ER he was on BiPAP with full facemask. He was drowsy though easily arousable and was following commands. He he was disoriented at the time of my evaluation though he couldn't give me his name he could not tell me the correct year. He appeared to be tolerating BiPAP fairly well. Reportedly he had been on hospice and has had multiple hospitalizations for his advanced COPD. History PFSH Past Medical History Cancer: No Cardiovascular Problems: Yes High Cholesterol: Yes Chest Pain: Yes COPD: Yes Coronary Artery Disease: Yes Diabetes: Yes Patient Takes Glucophage: Yes Diminished Hearing: No Endocrine: No Genitourinary: No Hypertension: Yes Musculoskeletal: Yes (CHRONIC BACK PAIN) Neurologic: No Psychiatric: No Reproductive: No Respiratory: Yes (COPD ) Immunizations Current: Yes Thyroid Disease: No Tetanus Vaccination: Unknown Influenza Vaccination: Yes Past Surgical History Abdominal Surgery: No Appendectomy: Yes Cardiac Surgery: No Ear Surgery: No Endocrine Surgery: No Eye Surgery: No Genitourinary Surgery: No Oral Surgery: No Thoracic Surgery: No Other Surgery: Yes (PIPE EMBEDDED IN HEAD AND REMOVED) Social History Alcohol Use: No Tobacco Use: Yes Substance Use: No Allergies-Medications Allergies-Medications (Allergen,Severity, Reaction): Coded Allergies: aspirin (Unverified Allergy, Severe, Hives, 02/10/17) tramadol (Unverified Allergy, Severe, Hives, 02/10/17) Uncoded Allergies: NSAIDS (Allergy, Severe, Hives, 11/26/11) "ALL NSAIDS, I CAN'T REMEMBER ALL OF THEM" Reported Meds & Prescriptions Reported Meds & Active Scripts Active Reported Spiriva Respimat Inh (Tiotropium Inh) 2.5 Mcg/Act Aero 2 Puff INH DAILY 2.5 mcg = 1 inhalation Gemfibrozil 600 Mg Tab 600 Mg PO BIDAC Take 30 minutes prior to breakfast and dinner. Flunisolide Nasal [place] (Flunisolide) 0.025 Mg/Act Naspr 2 [place] EACH NARE BID Restasis Opth (Cyclosporine Opth) 0.05% Emul 1 Drop EACH EYE BID PRN Lyrica (Pregabalin) 25 Mg Cap 25 Mg PO BID Metformin (Metformin HCl) 500 Mg Tab 500 Mg PO BIDPC With meals ROS Review of Systems ROS Limitations: Altered Mental Status Physical Exam Physical Exam Narrative GENERAL: Lethargic, but awakens easily. SKIN: Focused skin assessment warm/dry. Skin is warm, areas of sloughing. HEAD: Atraumatic. Normocephalic. EYES: Pupils equal and round. No scleral icterus. EOMI. ENT: Mucous membranes dry. NECK: Trachea midline. No JVD. CARDIOVASCULAR: Regular rate and rhythm. No murmur appreciated. RESPIRATORY: No accessory muscle use. Decreased breath sounds bilaterally with occasional wheezes. GASTROINTESTINAL: Abdomen soft, non-tender, nondistended. MUSCULOSKELETAL: No obvious deformities. No clubbing. No cyanosis. 2+ pitting edema bilateral lower extremities. NEUROLOGICAL: Sleeping, but awakens easily. No obvious cranial nerve deficits. Moves all of his extremities. Physical Exam Vital Signs Vital Signs Date Time Temp Pulse Resp B/P (MAP) Pulse Ox O2 Delivery O2 Flow Rate FiO2 08/19/17 15:43 98.1 102 26 126/55 (78) 96 BiPAP 80 08/19/17 14:53 98.0 89 20 112/60 (77) 96 BiPAP 80 08/19/17 12:34 111 24 102/60 (74) 96 BiPAP 80 08/19/17 12:00 94 80 08/19/17 11:47 96 Non-Rebreather 15.00 100 08/19/17 11:47 26 96 Non-Rebreather 15.00 100 08/19/17 11:42 120 28 96 Non-Rebreather 15.00 100 08/19/17 11:41 98.2 120 28 109/55 (73) 95 Physical Exam HEENT/Neuro: No pallor or icterus, tongue moist, KIARRA, drowsy, easily arousable on BiPAP with full facemask, moves all 4 extremities. Neck: No JVD Chest/pulmonary: On BiPAP with full facemask, air entry decreased bilaterally, no wheezing or crackles. Breath sounds distant Cardiovascular: S1-S2 regular no gallop or murmur GI/abdomen: Soft, nontender, bowel sounds present Extremities: Warm bilaterally, trace edema Laboratory Laboratory Tests Test 08/19/17 11:17 08/19/17 13:00 08/19/17 13:15 White Blood Count 12.6 Red Blood Count 4.78 Hemoglobin 13.9 Hematocrit 43.2 Mean Corpuscular Volume 90.3 Mean Corpuscular Hemoglobin 29.1 Mean Corpuscular Hemoglobin Concent 32.2 Red Cell Distribution Width 15.2 Platelet Count 251 Mean Platelet Volume 9.4 Neutrophils (%) (Auto) 92.7 Lymphocytes (%) (Auto) 4.5 Monocytes (%) (Auto) 2.4 Eosinophils (%) (Auto) 0.0 Basophils (%) (Auto) 0.4 Neutrophils # (Auto) 11.7 Lymphocytes # (Auto) 0.6 Monocytes # (Auto) 0.3 Eosinophils # (Auto) 0.0 Basophils # (Auto) 0.0 CBC Comment DIFF FINAL Differential Comment Prothrombin Time 12.1 Prothromb Time International Ratio 1.2 Activated Partial Thromboplast Time 21.1 Blood Urea Nitrogen 19 Creatinine 1.04 Random Glucose 212 Total Protein 7.0 Albumin 3.5 Calcium Level 8.8 Alkaline Phosphatase 63 Aspartate Amino Transf (AST/SGOT) 25 Alanine Aminotransferase (ALT/SGPT) 29 Total Bilirubin 0.8 Sodium Level 135 Potassium Level 3.9 Chloride Level 89 Carbon Dioxide Level 43.3 Anion Gap 3 Estimat Glomerular Filtration Rate 72 Lactic Acid Level 1.9 Troponin I 0.09 B-Type Natriuretic Peptide 27 Urine Color YELLOW Urine Turbidity CLEAR Urine pH 6.5 Urine Specific [place] 1.021 Urine Protein 100 Urine Glucose (UA) NEG Urine Ketones NEG Urine Occult Blood NEG Urine Nitrite NEG Urine Bilirubin NEG Urine Urobilinogen 2.0 Urine Leukocyte Esterase NEG Urine RBC 1 Urine WBC 1 Urine Squamous Epithelial Cells <1 Urine Hyaline Casts 8 Urine Mucus MOD Microscopic Urinalysis Comment CULT NOT INDICATED Blood Gas Puncture Site RT RADIAL Blood Gas Patient Temperature 98.6 Blood Gas HCO3 45 Blood Gas Base Excess 17.1 Blood Gas Oxygen Saturation 77 Arterial Blood pH 7.27 Arterial Blood Partial Pressure CO2 101 Arterial Blood Partial Pressure O2 53 Arterial Blood Oxygen Content 14.6 Arterial Blood Carboxyhemoglobin 8.5 Arterial Blood Methemoglobin 0.7 Blood Gas Hemoglobin 13.4 Oxygen Delivery Device BIPAP Blood Gas Ventilator Setting 15 IPAP/5 EPAP Blood Gas Inspired Oxygen 60 Date/Time Source Procedure Growth Status 08/19/17 13:00 Nasal Washing Influenza Types A,B Antigen (CARISSA) - Final NEGATIVE FOR FLU A AND B ANTIGEN.... Complete Result Diagram: 08/19/17 1117 08/19/17 1117 Imaging Last Impressions Chest X-Ray 08/19/17 1146 Signed Impressions: Service Date/Time: Saturday, August 19, 2017 11:58 - CONCLUSION: Bilateral infiltrates. Abelardo Chu MD Head CT 08/19/17 0000 Signed Impressions: Service Date/Time: Saturday, August 19, 2017 12:15 - CONCLUSION: Normal examination for a patient of this age. No significant change has occurred. MD Mars Freed VTE Risk Assessment Caprini VTE Risk Assessment: Mod/High Risk (score >= 2) Caprini Risk Assessment Model Point Value = 1 Point Value = 2 Point Value = 3 Point Value = 5 Age 41-60 Minor surgery BMI > 25 kg/m2 Swollen legs Varicose veins or History of unexplained or recurrent spontaneous Oral contraceptives or hormone replacement Sepsis (< 1 month) Serious lung disease, including pneumonia (< 1 month) Abnormal pulmonary function Acute myocardial infarction Congestive heart failure (< 1 month) History of inflammatory bowel disease Medical patient at bed rest Age 61-74 Arthroscopic surgery Major open surgery (> 45 min) Laparoscopic surgery (> 45 min) Malignancy Confined to bed (> 72 hours) Immobilizing plaster cast Central venous access Age >= 75 History of VTE Family history of VTE Factor V Leiden Prothrombin [id number] Lupus anticoagulant Anticardiolipin antibodies Elevated serum homocysteine Heparin-induced thrombocytopenia Other congenital or acquired thrombophilia Stroke (< 1 month) Elective arthroplasty Hip, pelvis, or leg fracture Acute spinal cord injury (< 1 month) Prophylaxis Regimen Total Risk Factor Score Risk Level Prophylaxis Regimen 0-1 Low Early ambulation 2 Moderate Order ONE of the following: *Sequential Compression Device (SCD) *Heparin 5000 units SQ BID 3-4 Higher Order ONE of the following medications: *Heparin 5000 units SQ TID *Enoxaparin/Lovenox 40 mg SQ daily (WT < 150 kg, CrCl > 30 mL/min) *Enoxaparin/Lovenox 30 mg SQ daily (WT < 150 kg, CrCl > 10-29 mL/min) *Enoxaparin/Lovenox 30 mg SQ BID (WT < 150 kg, CrCl > 30 mL/min) AND/OR *Sequential Compression Device (SCD) 5 or more Highest Order ONE of the following medications: *Heparin 5000 units SQ TID (Preferred with Epidurals) *Enoxaparin/Lovenox 40 mg SQ daily (WT < 150 kg, CrCl > 30 mL/min) *Enoxaparin/Lovenox 30 mg SQ daily (WT < 150 kg, CrCl > 10-29 mL/min) *Enoxaparin/Lovenox 30 mg SQ BID (WT < 150 kg, CrCl > 30 mL/min) AND *Sequential Compression Device (SCD) Assessment and Plan Assessment and Plan 66-year-old male with: Acute on chronic respiratory failure requiring BiPAP Advanced end-stage COPD Diabetes mellitus CAD Chronic back pain Plan: Neuro: Follow neuro status. Altered mental status secondary to CO2 retention. Continue BiPAP. Avoid sedatives and narcotics. Cardiovascular: Watch for hypotension. Received Lasix in the ER. IV fluids KVO currently. Pulmonary: Continue BiPAP with full facemask. Follow-up repeat ABGs at 6 PM to see if CO2 is improving. May require endotracheal intubation if respiratory status worsens. Continue steroids, bronchodilators. ID: Empiric antibiotic coverage with Zithromax/cefepime. Influenza negative. Check urine for strep pneumo and Legionella antigen. GI/liver: Nothing by mouth for now Renal/: Strict intake output, monitor and replete elect lites, follow BUN creatinine. Heme: Follow CBC Endocrine: Watch for hyperglycemia, SSI for glycemic control if needed. Prophylaxis: Pepcid/SCDs/Lovenox Patient remains full CODE STATUS at this time. I have consulted palliative care and discuss with Dr. Gomez to assist with clarifying CODE STATUS with family as patient has been followed by [facility]. Discussed with ER physician. Condition critical. Patient had S4 intubation. Prognosis appears extremely poor. Time spent on critical care excluding procedures 70 minutes Robby Rene MD Aug 19, 2017 17:50
[2017-08-19] MEDS ORDERED: GLUCAGON 1 MG/ML VIAL IM/SQ PRN (18:00)
[2017-08-19] MEDS ORDERED: DEXTROSE 50% IN WATER 50 ML VIAL(D50) IV PRN (18:00)
[2017-08-19] MEDS: CHLORHEXIDINE 0.12% (ORAL KIT) 15 ML CUP MT SCH (20:00)
[2017-08-19] MEDS: SODIUM CHLORIDE 0.9% FLUSH 10 ML FLUSH IV FLUSH SCH (21:59)
[2017-08-19] MEDS: FAMOTIDINE 20 MG/2 ML VIAL IV PUSH SCH (21:59)
[2017-08-19] MEDS: methylPREDNISolone SOD SUCC 125 MG/2 ML VIAL IV PUSH SCH (21:59)
[2017-08-19] MEDS: CEFEPIME INJ 1,000 MG in SODIUM CHLORIDE 0.9% INJ 100 ML IV SCH (22:00)
[2017-08-20] VITALS (18 sets, daily range): BP systolic 108–142; BP diastolic 58–77; PULSE 77–98; RESP 15–41; TEMP 98.2–99; O2SAT 79–97
[2017-08-20] MEDS: CHLORHEXIDINE GLUCONATE 2 % 1 PACK (2 CLOTHS) TOP SCH (04:00)
[2017-08-20] MEDS: RESP: ALBUTEROL 2.5 MG/IPRATROPIUM 0.5 MG NEB (SCH) NEB ×6 (04:04→23:49)
[2017-08-20 04:49] LABS: AUTOMATED NEUTROPHIL # 9.2 TH/MM3 (1.8-7.7); BASOPHIL % 0.3 % (0.0-2.0); HEMATOCRIT 41.8 % (39.0-51.0); HEMOGLOBIN 13.6 GM/DL (13.0-17.0); LYMPH % 6.2 % (9.0-44.0); LYMPHOCYTE # 0.6 TH/MM3 (1.0-4.8); MEAN CELL VOLUME 90.1 FL (80.0-100.0); MEAN CORPUSCULAR HEMOGLOBIN 29.4 PG (27.0-34.0); MEAN CORPUSCULAR HGB CONC 32.6 % (32.0-36.0); MEAN PLATELET VOLUME 9.2 FL (7.0-11.0); MONO % 2.3 % (0.0-8.0); MONOCYTE # 0.2 TH/MM3 (0-0.9); NEUT % 91.2 % (16.0-70.0); PLATELET COUNT 200 TH/MM3 (150-450); RED BLOOD COUNT 4.63 MIL/MM3 (4.50-5.90); RED CELL DISTRIBUTION WIDTH 15.2 % (11.6-17.2); WHITE BLOOD COUNT 10.1 TH/MM3 (4.0-11.0)
[2017-08-20 05:20] LABS: ALKALINE PHOSPHATASE 54 U/L (45-117); ALT (GPT) 34 U/L (12-78); AST (GOT) 66 U/L (15-37); BLOOD UREA NITROGEN 21 MG/DL (7-18); CALCIUM 8.8 MG/DL (8.5-10.1); CHLORIDE 90 MEQ/L (98-107); CREATININE 0.59 MG/DL (0.60-1.30); GLOMERULAR FILTRATION RATE 138 ML/MIN (>89); GLUCOSE,RANDOM 160 MG/DL (74-106); SODIUM (NA) 135 MEQ/L (136-145); TOTAL BILIRUBIN ADULT 0.7 MG/DL (0.2-1.0); TOTAL PROTEIN 6.3 GM/DL (6.4-8.2)
[2017-08-20] MEDS: INSULIN ASPART SUPPLEMENTAL SCALE SQ SCH ×5 (06:00→17:48)
--- NOTE | 2017-08-20 06:00 | RADRPT ---
EXAM DATE/TIME: 08/20/2017 04:33 [place] COMPARISON: CHEST SINGLE AP, August 19, 2017, 11:58. INDICATIONS : Shortness of breath, COPD. MEDICAL HISTORY : Hypertension. Chronic obstructive pulmonary disease. Diabetes mellitus type II. CAD SURGICAL HISTORY : None. ENCOUNTER: Subsequent ACUITY: 2 days PAIN SCORE: 0/10 LOCATION: Bilateral chest FINDINGS: A single AP semierect view of the chest was obtained. The study is less Midinspiratory. There is mild er patchy opacity at the lung bases which is improved. The heart size remains at the upper limits of normal. The left costophrenic angle remains blunted and the left hemidiaphragm is partially obscured. Multiple overlying electrical leads present. CONCLUSION: 1. Improved aeration with decreased opacity of the lung bases. 2. Residual opacity remains at the left lung base with blunting of costophrenic angle. Christo Castillo MD on August 20, 2017 at 5:57 Board Certified Radiologist. This report was verified electronically.
[2017-08-20] MEDS: methylPREDNISolone SOD SUCC 125 MG/2 ML VIAL IV PUSH SCH ×3 (06:02→20:23)
[2017-08-20] MEDS: CEFEPIME INJ 1,000 MG in SODIUM CHLORIDE 0.9% INJ 100 ML IV SCH ×3 (06:03→20:24)
[2017-08-20] MEDS: CHLORHEXIDINE 0.12% (ORAL KIT) 15 ML CUP MT SCH ×2 (08:00→20:21)
[2017-08-20] MEDS: FAMOTIDINE 20 MG/2 ML VIAL IV PUSH SCH ×2 (09:23→20:22)
[2017-08-20] MEDS: SODIUM CHLORIDE 0.9% FLUSH 10 ML FLUSH IV FLUSH SCH ×2 (09:23→20:22)
[2017-08-20] MEDS ORDERED: INFLUENZA VIRUS VACCINE (QUADRIVALENT) 0.5 ML SYR IM ONE (10:00)
--- NOTE | 2017-08-20 14:27 | HHI.CCPN ---
Subjective Remarks/Hospital Course 08/19: Patient is a 66 year old male who comes in due AMS and SOB. Per EMS, patient has history of COPD and called his family member this morning stating he was SOB and he was going to take himself to the hospital. EMS states that he was found by a neighbor sitting in his car outside his house unresponsive. Patient had O2 saturation in the 70s when EMS arrived. They report his mental status improved with oxygen, but he was still confused. Patient was noted to have acute on the story acidosis on an ABG done in the ER following his arrival with PCO2 with 101. He was placed on BiPAP. His brother was contacted by ER physician and who wanted to continue aggressive care at this time though patient had been on hospice services his CODE STATUS was not clear. Patient was accepted for admission by critical care medicine service. When I evaluated the patient in the ER he was on BiPAP with full facemask. He was drowsy though easily arousable and was following commands. He he was disoriented at the time of my evaluation though he couldn't give me his name he could not tell me the correct year. He appeared to be tolerating BiPAP fairly well. Reportedly he had been on hospice and has had multiple hospitalizations for his advanced COPD. 08/20: Breathing much better on nasal cannula this morning. Awake and alert. Following commands. Objective Vital Signs Date Time Temp Pulse Resp B/P (MAP) Pulse Ox O2 Delivery O2 Flow Rate FiO2 08/20/17 14:00 98 08/20/17 13:36 91 Nasal Cannula 6.00 08/20/17 13:30 21 08/20/17 12:00 98.7 15 121/63 (82) Intake and Output 08/20/17 08/20/17 08/21/17 08:00 16:00 00:00 Output Total 200 ml Balance -200 ml Result Diagram: 08/20/17 0345 08/20/17 0345 Other Results Microbiology Date/Time Source Procedure Growth Status 08/19/17 13:00 Nasal Washing Influenza Types A,B Antigen (CARISSA) - Final NEGATIVE FOR FLU A AND B ANTIGEN.... Complete 08/19/17 13:00 Urine Catheterized Urine Legionella Antigen - Final PRESUMPTIVE NEGATIVE FOR LEGIONELLA P... Complete 08/19/17 13:00 Urine Catheterized Urine Streptococcus pneumoniae Antigen (M - Final PRESUMPTIVE NEGATIVE FOR STREPTOCOCCU... Complete Laboratory Tests Test 08/19/17 17:52 08/20/17 04:17 Blood Gas Puncture Site RT RADIAL RT RADIAL Blood Gas Patient Temperature 98.6 98.6 Blood Gas HCO3 44 mmol/L (22-26) 46 mmol/L (22-26) Blood Gas Base Excess 17.1 mmol/L (-2-2) 19.2 mmol/L (-2-2) Blood Gas Oxygen Saturation 84 % (90-100) 92 % (90-100) Arterial Blood pH 7.35 (7.380-7.420) 7.37 (7.380-7.420) Arterial Blood Partial Pressure CO2 81 mmHg (38-42) 80 mmHg (38-42) Arterial Blood Partial Pressure O2 61 mmHg (61-120) 82 mmHg (61-120) Arterial Blood Oxygen Content 16.3 Vol % (12.0-20.0) 17.2 Vol % (12.0-20.0) Arterial Blood Carboxyhemoglobin 6.6 % (0-4) 3.0 % (0-4) Arterial Blood Methemoglobin 1.4 % (0-2) 1.3 % (0-2) Blood Gas Hemoglobin 13.9 G/DL (12.0-16.0) 13.4 G/DL (12.0-16.0) Oxygen Delivery Device BiPAP BiPAP 15/5/50% Blood Gas Ventilator Setting IPAP15 EPAP5 Blood Gas Inspired Oxygen 50 % 50 % Imaging Last Impressions Chest X-Ray 08/19/17 1146 Signed Impressions: Service Date/Time: Saturday, August 19, 2017 11:58 - CONCLUSION: Bilateral infiltrates. Abelardo Chu MD Head CT 08/19/17 0000 Signed Impressions: Service Date/Time: Saturday, August 19, 2017 12:15 - CONCLUSION: Normal examination for a patient of this age. No significant change has occurred. Diego Bower MD Objective Remarks HEENT/Neuro: No pallor or icterus, tongue moist, KIARRA, awake alert oriented 3 , moves all 4 extremities. Neck: No JVD Chest/pulmonary: On nasal cannula, air entry decreased bilaterally, no wheezing or crackles. Breath sounds distant Cardiovascular: S1-S2 regular no gallop or murmur GI/abdomen: Soft, nontender, bowel sounds present Extremities: Warm bilaterally, trace edema A/P Assessment and Plan 66-year-old male with: Acute on chronic respiratory failure Advanced end-stage COPD Diabetes mellitus CAD Chronic back pain Plan: Neuro: Follow neuro status. Altered mental status secondary to CO2 retention. Continue BiPAP. Avoid sedatives and narcotics. Cardiovascular: Watch for hypotension. Received Lasix in the ER. IV fluids KVO currently. Pulmonary: Continue BiPAP with full facemask. Continue steroids, bronchodilators. ID: Empiric antibiotic coverage with Zithromax/cefepime. Influenza negative. Check urine for strep pneumo and Legionella antigen. GI/liver: Advance diet as tolerated Renal/: Strict intake output, monitor and replete elect lites, follow BUN creatinine. Heme: Follow CBC Endocrine: Watch for hyperglycemia, SSI for glycemic control if needed. Prophylaxis: Pepcid/SCDs/Lovenox Consulted palliative care and discussed with Dr. Gomez on 08/19 to assist with clarifying CODE STATUS with family as patient has been followed by [facility] previously. Patient is currently a DNR status. Plan is to transfer to hospice tomorrow per discussion with Dr. Gomez. Robby Rene MD Aug 20, 2017 14:26
[2017-08-20] MEDS ORDERED: AZITHROMYCIN INJ 500 MG in SODIUM CHLOR 0.9% 250 ML INJ 250 ML IV SCH (15:00)
[2017-08-20] MEDS: SODIUM CHLOR 0.9% 1000 ML INJ 1,000 ML IV SCH (16:29)
[2017-08-20] MEDS: ENOXAPARIN SODIUM 40 MG/0.4 ML SYRINGE SQ SCH (16:52)
--- NOTE | 2017-08-20 18:41 | HHI.HCPN ---
Reason for visit a. To assist with evaluation and management of symptoms including: dyspnea ; confusion; neuropathic lower extremity pain b. To assist medical decision maker(s) with: better understanding of current medical conditions; weighing benefits/burdens of medical treatment options; making medical treatment decisions. . Subjective/Interval History Mr. Panchal is awake and alert and conversant and off BiPAP at time of my visit. He is somewhat jittery (presumably from the steroids). He reports his breathing is much better. He feels his neuropathic pain is adequately managed. He remains NPO at time of my visit and is asking for food and something to drink. Patient reports that he thinks he has been having hallucinations for about 6 months. He denies prior psych history. He is uncertain if hallucinations only occur while he is off 02. We discuss his home situation and how it is becoming increasingly difficult for him to manage safely. We talk about how is nephew is expecting to arrive from [facility] next Thursday. Pt is willing to consider using that opportunity to see if he can move to a supervised environment. He appears open to a plan to be discharged from hospital to hospice care center and get home next Thursday when his nephew arrives. . Family/friend interactions Spoke with nephew by phone and provided update. . Advance Directives Living Will: Copy in medical record Health Care Surrogate: Copy in medical record Durable Power of Cast [employer] Drain Pipe Layer: Copy in medical record Advance Directive Specifics Date completed: 05/31/2010 -- Advance Directive completed through the [place]. . Health Care Surrogate(s): Lg Cook (Nephew) is primary health care surrogate [phone] Lenore Leary (sister) is alternate [phone] . Documented care wishes: Living will states he would want no life prolonging interventions should he have an end stage condition, persistent vegetative state, or terminal illness. He has added -- "No assistance at all. No organ donor, or transfusions." He also indicated that, "I want my preferences, expressed above in this living will, to be followed strictly, even if the person who is making decision for me things this is not in my best interest." . Objective Vital Signs Date Time Temp Pulse Resp B/P (MAP) Pulse Ox O2 Delivery O2 Flow Rate FiO2 08/20/17 18:00 88 08/20/17 16:00 84 08/20/17 16:00 98.3 84 21 123/75 (91) 95 08/20/17 14:00 98 08/20/17 13:36 91 Nasal Cannula 6.00 08/20/17 13:30 79 21 08/20/17 12:00 98.7 81 15 121/63 (82) 93 08/20/17 12:00 81 08/20/17 10:00 84 08/20/17 08:44 87 Nasal Cannula 6.00 08/20/17 08:00 99.0 80 31 108/58 (75) 91 08/20/17 08:00 80 08/20/17 06:00 83 08/20/17 04:00 79 08/20/17 04:00 98.2 79 21 118/62 (80) 94 08/20/17 02:00 77 08/20/17 01:12 94 60 08/20/17 00:00 80 08/20/17 00:00 98.3 80 39 142/60 (87) 92 08/19/17 23:03 95 BiPAP 60 08/19/17 22:10 94 60 08/19/17 20:00 98.1 86 26 125/67 (86) 95 08/19/17 20:00 86 08/19/17 19:10 98 70 Intake & Output 08/20/17 08/20/17 06:59 18:59 Intake Total 100 ml 180 ml Output Total 700 ml Balance -600 ml 180 ml Intake Oral 100 ml 180 ml Output Urine Total 700 ml # Voids 3 # Bowel Movements 1 1 . Physical Exam CONSTITUTIONAL/GENERAL: This is an obese male. Awake, alert, conversant. Able to smile. Dyspneic when conversing. Otherwise, no apparent distress. TUBES/LINES/DRAINS: Peripheral IV. Nasal cannula 02. SKIN: No jaundice, rashes, or lesions. Ecchymoses on upper extremities. No wounds seen anteriorly. Skin temperature appropriate. Not diaphoretic. EYES: Pupils equal and round and reactive. Extraocular motions intact. No scleral icterus. No injection or drainage. Fundi not examined. ENT: Nose without bleeding or purulent drainage. Throat without visible erythema , exudates, masses, or lesions. NECK: Trachea midline. Supple, nontender. CARDIOVASCULAR: Regular, rapid rate and rhythm without murmurs, gallops, or rubs. No JVD. RESPIRATORY/CHEST: Symmetric unlabored respirations. Breath sounds equal bilaterally but quite diminished.. No wheezing heard today. GASTROINTESTINAL: Abdomen obese, soft, non-tender, nondistended. No hepato- splenomegaly, or palpable masses. No guarding. Bowel sounds present. GENITOURINARY: Without palpable bladder distension. MUSCULOSKELETAL: Extremities without clubbing, cyanosis. There is some 1+ edema bilaterally in the lower extremities with slight erythema around the lower calves. . No mottling. LYMPHATICS: Not examined. NEUROLOGICAL: Awake, alert , oriented. . Follows commands. Answers simple questions appropriately. Occasional word finding issues and sometimes loses track of thought. Moves all extremities. PSYCHIATRIC: No obvious anxiety/depression. No apparent hallucinations or other psychotic thought process. . Diagnostic Tests Laboratory Laboratory Tests Test 08/19/17 11:17 08/19/17 13:00 08/19/17 13:15 08/19/17 17:52 White Blood Count 12.6 TH/MM3 (4.0-11.0) Red Blood Count 4.78 MIL/MM3 (4.50-5.90) Hemoglobin 13.9 GM/DL (13.0-17.0) Hematocrit 43.2 % (39.0-51.0) Mean Corpuscular Volume 90.3 FL (80.0-100.0) Mean Corpuscular Hemoglobin 29.1 PG (27.0-34.0) Mean Corpuscular Hemoglobin Concent 32.2 % (32.0-36.0) Red Cell Distribution Width 15.2 % (11.6-17.2) Platelet Count 251 TH/MM3 (150-450) Mean Platelet Volume 9.4 FL (7.0-11.0) Neutrophils (%) (Auto) 92.7 % (16.0-70.0) Lymphocytes (%) (Auto) 4.5 % (9.0-44.0) Monocytes (%) (Auto) 2.4 % (0.0-8.0) Eosinophils (%) (Auto) 0.0 % (0.0-4.0) Basophils (%) (Auto) 0.4 % (0.0-2.0) Neutrophils # (Auto) 11.7 TH/MM3 (1.8-7.7) Lymphocytes # (Auto) 0.6 TH/MM3 (1.0-4.8) Monocytes # (Auto) 0.3 TH/MM3 (0-0.9) Eosinophils # (Auto) 0.0 TH/MM3 (0-0.4) Basophils # (Auto) 0.0 TH/MM3 (0-0.2) CBC Comment DIFF FINAL Differential Comment Prothrombin Time 12.1 SEC (9.8-11.6) Prothromb Time International Ratio 1.2 RATIO Activated Partial Thromboplast Time 21.1 SEC (24.3-30.1) Blood Urea Nitrogen 19 MG/DL (7-18) Creatinine 1.04 MG/DL (0.60-1.30) Random Glucose 212 MG/DL (74-106) Total Protein 7.0 GM/DL (6.4-8.2) Albumin 3.5 GM/DL (3.4-5.0) Calcium Level 8.8 MG/DL (8.5-10.1) Alkaline Phosphatase 63 U/L (45-117) Aspartate Amino Transf (AST/SGOT) 25 U/L (15-37) Alanine Aminotransferase (ALT/SGPT) 29 U/L (12-78) Total Bilirubin 0.8 MG/DL (0.2-1.0) Sodium Level 135 MEQ/L (136-145) Potassium Level 3.9 MEQ/L (3.5-5.1) Chloride Level 89 MEQ/L (98-107) Carbon Dioxide Level 43.3 MEQ/L (21.0-32.0) Anion Gap 3 MEQ/L (5-15) Estimat Glomerular Filtration Rate 72 ML/MIN (>89) Lactic Acid Level 1.9 mmol/L (0.4-2.0) Troponin I 0.09 NG/ML (0.02-0.05) B-Type Natriuretic Peptide 27 PG/ML (0-100) Urine Color YELLOW (YELLW/STRAW) Urine Turbidity CLEAR (CLEAR) Urine pH 6.5 (5.0-8.5) Urine Specific Sawyer 1.021 (1.002-1.035) Urine Protein 100 mg/dL (NEG-TRACE) Urine Glucose (UA) NEG mg/dL (NEG) Urine Ketones NEG mg/dL (NEG) Urine Occult Blood NEG (NEG) Urine Nitrite NEG (NEG) Urine Bilirubin NEG (NEG) Urine Urobilinogen 2.0 MG/DL (LESS THAN Urine Leukocyte Esterase NEG (NEG) Urine RBC 1 /hpf (0-3) Urine WBC 1 /hpf (0-5) Urine Squamous Epithelial Cells <1 /hpf (0-5) Urine Hyaline Casts 8 /lpf (RARE) Urine Mucus MOD /lpf (OCC) Microscopic Urinalysis Comment CULT NOT INDICATED Blood Gas Puncture Site RT RADIAL RT RADIAL Blood Gas Patient Temperature 98.6 98.6 Blood Gas HCO3 45 mmol/L (22-26) 44 mmol/L (22-26) Blood Gas Base Excess 17.1 mmol/L (-2-2) 17.1 mmol/L (-2-2) Blood Gas Oxygen Saturation 77 % (90-100) 84 % (90-100) Arterial Blood pH 7.27 (7.380-7.420) 7.35 (7.380-7.420) Arterial Blood Partial Pressure CO2 101 mmHg (38-42) 81 mmHg (38-42) Arterial Blood Partial Pressure O2 53 mmHG (61-120) 61 mmHg (61-120) Arterial Blood Oxygen Content 14.6 Vol % (12.0-20.0) 16.3 Vol % (12.0-20.0) Arterial Blood Carboxyhemoglobin 8.5 % (0-4) 6.6 % (0-4) Arterial Blood Methemoglobin 0.7 % (0-2) 1.4 % (0-2) Blood Gas Hemoglobin 13.4 G/DL (12.0-16.0) 13.9 G/DL (12.0-16.0) Oxygen Delivery Device BIPAP BiPAP Blood Gas Ventilator Setting 15 IPAP/5 EPAP IPAP15 EPAP5 Blood Gas Inspired Oxygen 60 % 50 % Test 08/19/17 18:00 08/20/17 03:45 08/20/17 04:17 Nasal Screen MRSA (PCR) MRSA NOT DETECTED (NOT White Blood Count 10.1 TH/MM3 (4.0-11.0) Red Blood Count 4.63 MIL/MM3 (4.50-5.90) Hemoglobin 13.6 GM/DL (13.0-17.0) Hematocrit 41.8 % (39.0-51.0) Mean Corpuscular Volume 90.1 FL (80.0-100.0) Mean Corpuscular Hemoglobin 29.4 PG (27.0-34.0) Mean Corpuscular Hemoglobin Concent 32.6 % (32.0-36.0) Red Cell Distribution Width 15.2 % (11.6-17.2) Platelet Count 200 TH/MM3 (150-450) Mean Platelet Volume 9.2 FL (7.0-11.0) Neutrophils (%) (Auto) 91.2 % (16.0-70.0) Lymphocytes (%) (Auto) 6.2 % (9.0-44.0) Monocytes (%) (Auto) 2.3 % (0.0-8.0) Eosinophils (%) (Auto) 0.0 % (0.0-4.0) Basophils (%) (Auto) 0.3 % (0.0-2.0) Neutrophils # (Auto) 9.2 TH/MM3 (1.8-7.7) Lymphocytes # (Auto) 0.6 TH/MM3 (1.0-4.8) Monocytes # (Auto) 0.2 TH/MM3 (0-0.9) Eosinophils # (Auto) 0.0 TH/MM3 (0-0.4) Basophils # (Auto) 0.0 TH/MM3 (0-0.2) CBC Comment DIFF FINAL Differential Comment Blood Urea Nitrogen 21 MG/DL (7-18) Creatinine 0.59 MG/DL (0.60-1.30) Random Glucose 160 MG/DL (74-106) Total Protein 6.3 GM/DL (6.4-8.2) Albumin 3.0 GM/DL (3.4-5.0) Calcium Level 8.8 MG/DL (8.5-10.1) Alkaline Phosphatase 54 U/L (45-117) Aspartate Amino Transf (AST/SGOT) 66 U/L (15-37) Alanine Aminotransferase (ALT/SGPT) 34 U/L (12-78) Total Bilirubin 0.7 MG/DL (0.2-1.0) Sodium Level 135 MEQ/L (136-145) Potassium Level 4.0 MEQ/L (3.5-5.1) Chloride Level 90 MEQ/L (98-107) Carbon Dioxide Level 44.0 MEQ/L (21.0-32.0) Anion Gap 1 MEQ/L (5-15) Estimat Glomerular Filtration Rate 138 ML/MIN (>89) Blood Gas Puncture Site RT RADIAL Blood Gas Patient Temperature 98.6 Blood Gas HCO3 46 mmol/L (22-26) Blood Gas Base Excess 19.2 mmol/L (-2-2) Blood Gas Oxygen Saturation 92 % (90-100) Arterial Blood pH 7.37 (7.380-7.420) Arterial Blood Partial Pressure CO2 80 mmHg (38-42) Arterial Blood Partial Pressure O2 82 mmHg (61-120) Arterial Blood Oxygen Content 17.2 Vol % (12.0-20.0) Arterial Blood Carboxyhemoglobin 3.0 % (0-4) Arterial Blood Methemoglobin 1.3 % (0-2) Blood Gas Hemoglobin 13.4 G/DL (12.0-16.0) Oxygen Delivery Device BiPAP 15/5/50% Blood Gas Inspired Oxygen 50 % . Result Diagram: 08/20/17 0345 08/20/17 0345 Microbiology Microbiology Date/Time Source Procedure Growth Status 08/19/17 13:00 Nasal Washing Influenza Types A,B Antigen (CARISSA) - Final NEGATIVE FOR FLU A AND B ANTIGEN.... Complete 08/19/17 13:00 Urine Catheterized Urine Legionella Antigen - Final PRESUMPTIVE NEGATIVE FOR LEGIONELLA P... Complete 08/19/17 13:00 Urine Catheterized Urine Streptococcus pneumoniae Antigen (M - Final PRESUMPTIVE NEGATIVE FOR STREPTOCOCCU... Complete Imaging Last Impressions Chest X-Ray 08/20/17 0600 Signed Impressions: Service Date/Time: July 04:33 - CONCLUSION: 1. Improved aeration with decreased opacity of the lung bases. 2. Residual opacity remains at the left lung base with blunting of costophrenic angle. Christo Castillo MD Head CT 08/19/17 0000 Signed Impressions: Service Date/Time: Saturday, August 19, 2017 12:15 - CONCLUSION: Normal examination for a patient of this age. No significant change has occurred. Diego Bower MD . Procedures BiPAP . Assessment and Plan Disease Oriented Problem List: (1) Acute and chronic respiratory failure (2) Hypercapnemia (3) Respiratory acidosis (4) COPD exacerbation (5) Pneumonia (6) Hallucinations Comment: These are visual hallucinations. No prior psych history. Unclear if these are only occuring with hypoxia or elevated CO2 levels. . (7) Encephalopathy acute (8) DM2 (diabetes mellitus, type 2) (9) Diabetic neuropathy Symptom Scale: (1) Pain 0-10 Scale: Unable to quantify Comment: Patient patient's pain is primarily neuropathic pain in the lower extremities. This has been getting worse. He uses pregabalin at home as well as oxycodone 5-10 mg immediate release every 4 hours when necessary. . (2) Dyspnea 0-10 Scale: 10 Comment: Much improved since hospital admission. (3) Confusion 0-10 Scale: 3 Comment: Much improved since hospital admission. . Pertinent Non-Medical Issues Psychosocial: Patient has no real local psychosocial support. He has a sister and a nephew in [facility] who check in on him. Nephew should be arriving on 08/24/17 Spiritual: He is from a Worship tradition but currently identifies himself as "Worship." Has enjoyed hospice oil and gas superintendent visits. Legal: Completed advanced directive is now on chart. Health care surrogate is his nephew--Lg Trevino Ethical issues impacting care: Patient was incapacitated to make his own healthcare decisions on emergency department admission. He is rapidly regaining capacity. . Important Contacts Lg Cook (Nephew and primary health care surrogate) [phone] Lenorebethanie Burtonally (sister and alternate health care surrogate) [phone] . Prognosis Patient has severe COPD. He has required multiple hospitalizations over the last year. He is now a hospice patient and decline has been noted since hospice enrollment in May 2017. Life expectancy is thought to be 6 months or less. . Code Status: No Code Plan == Code Status: NO CODE (per living will; confirmed verbally by patient; and confirmed via telephone conversation with patients' health care surrogate). == Decision making: Patient was initially incapacitated in the ED to make his own healthcare decisions. With oxygenation improved under BiPAP he is now capacitated. He has confirmed the goals and wishes in his advance directive. . == Goals of treatment: Will continue with aggressive care short of resuscitation. Pt appears to endorse antibiotics; steroids, nebulizer treatments, etc. == Symptoms: * Dyspnea: Probably a COPD exacerbation complicated by pneumonia. There are bilateral infiltrates. Will continue with BiPAP, steroids, IV antibiotics. * Confusion: probably due to hypoxia. Improving with oxygenation and improving CO2 levels. * Neuropathy pain in lower extremities: This is a chronic problem for the patient for which he has been on pregabalin. He has also been using 5-10 mg of oxycodone every 4 hours when necessary. We may need to restart this here in the hospital once he is awake and alert. == Case discussed in person today with Dr. Rene and with hospice team. == Disposition: It has become increasingly unsafe for patient to care for himself. He has been very stubborn . He wants to remain independent and at home. this has been challenging for hospice nursing and hospice social work. Will plan on discharging to hospice care center on 08/21/17 . Can finish off antibiotic course with oral antibiotics in center. We can observe closely there for frequency of hallucinations/confusion and if confusion/hallucinations occur even with [address]. If stable, can discharge from care center to home when nephew arrives on 08/24/17. Hospice social workers can then work with patient and nephew to see if we can't arrange for some sort of supervised living situation. == Palliative care will continue to follow to assist with symptom management and to further clarify goals of medical treatment as the clinical course evolves. . Time Spent Total Floor Time (mins): 40 (Total floor time included chart review, patient exam, conversation with health care surrogate by phone, in person conversation with Dr. Rene, collaboration with hospice personnel, documentation. ) Face to Face Time (mins): 15 >50% Counseling/Coord of Care: Yes Attestation To help prompt me to consider important information that might be impacting today's encounter and assessment, information from prior notes written by myself or my colleagues may have been "brought forward" into today's note. My signature on this note, however, is an attestation that I personally performed the exam, history, and/or decision-making noted today, and, unless otherwise indicated, the interactions with patient, family, and staff as well as the review of records all occurred today. I also attest that the listed assessment and stated plan reflect my best clinical judgment today based on the combination of historical information, prior notes, and today's exam/ interactions. When time spent is documented, it refers only to time spent today by the signer, or if indicated, combined time spent today by collaborating physician/nurse practitioner. . Devin Gomez MD Aug 20, 2017 18:41
[2017-08-20] MEDS: PREGABALIN 25 MG CAP PO SCH (20:23)
[2017-08-20] MEDS: LORazepam 1 MG TAB PO PRN (20:24)
[2017-08-20] MEDS: FLUTICASONE PROPIONATE 50 MCG/ACT 16 GM NASAL SPRAY NASAL SCH (21:00)
[2017-08-21] VITALS (9 sets, daily range): BP systolic 115–132; BP diastolic 62–69; PULSE 68–90; RESP 25–39; TEMP 98.6–98.9; O2SAT 83–98
[2017-08-21] MEDS: INSULIN ASPART SUPPLEMENTAL SCALE SQ SCH ×3 (01:18→12:00)
[2017-08-21] MEDS: RESP: ALBUTEROL 2.5 MG/IPRATROPIUM 0.5 MG NEB (SCH) NEB ×3 (03:33→11:31)
[2017-08-21] MEDS: CHLORHEXIDINE GLUCONATE 2 % 1 PACK (2 CLOTHS) TOP SCH (04:00)
[2017-08-21] MEDS: CEFEPIME INJ 1,000 MG in SODIUM CHLORIDE 0.9% INJ 100 ML IV SCH (06:01)
[2017-08-21] MEDS: methylPREDNISolone SOD SUCC 125 MG/2 ML VIAL IV PUSH SCH (06:01)
[2017-08-21] MEDS ORDERED: GEMFIBROZIL 600 MG TAB PO SCH (07:00)
[2017-08-21] MEDS: CHLORHEXIDINE 0.12% (ORAL KIT) 15 ML CUP MT SCH (08:00)
[2017-08-21] MEDS: PREGABALIN 25 MG CAP PO SCH (08:08)
[2017-08-21] MEDS: LORazepam 1 MG TAB PO PRN (08:08)
[2017-08-21] MEDS: FAMOTIDINE 20 MG/2 ML VIAL IV PUSH SCH (08:09)
[2017-08-21] MEDS: FLUTICASONE PROPIONATE 50 MCG/ACT 16 GM NASAL SPRAY NASAL SCH (08:09)
[2017-08-21] MEDS: SODIUM CHLORIDE 0.9% FLUSH 10 ML FLUSH IV FLUSH SCH (08:11)
[2017-08-21] MEDS ORDERED: PT OWN (Tiotropium Inh (Spiriva Respimat Inh) INH SCH (09:00)
[2017-08-21] MEDS ORDERED: CYCLOSPORINE OPTH EACH EYE PRN (09:00)
--- NOTE | 2017-08-21 10:54 | HHI.CCPN ---
Subjective Remarks/Hospital Course 08/19: Patient is a 66 year old male who comes in due AMS and SOB. Per EMS, patient has history of COPD and called his family member this morning stating he was SOB and he was going to take himself to the hospital. EMS states that he was found by a neighbor sitting in his car outside his house unresponsive. Patient had O2 saturation in the 70s when EMS arrived. They report his mental status improved with oxygen, but he was still confused. Patient was noted to have acute on the story acidosis on an ABG done in the ER following his arrival with PCO2 with 101. He was placed on BiPAP. His brother was contacted by ER physician and who wanted to continue aggressive care at this time though patient had been on hospice services his CODE STATUS was not clear. Patient was accepted for admission by critical care medicine service. When I evaluated the patient in the ER he was on BiPAP with full facemask. He was drowsy though easily arousable and was following commands. He he was disoriented at the time of my evaluation though he couldn't give me his name he could not tell me the correct year. He appeared to be tolerating BiPAP fairly well. Reportedly he had been on hospice and has had multiple hospitalizations for his advanced COPD. 08/20: Breathing much better on nasal cannula this morning. Awake and alert. Following commands. 08/22 No events overnight. Patient is on BIPAP 15/5 with 50% FIO2. For discharge to hospice care center this morning Objective Vital Signs Date Time Temp Pulse Resp B/P (MAP) Pulse Ox O2 Delivery O2 Flow Rate FiO2 08/21/17 10:00 90 08/21/17 08:00 98.6 25 115/62 (79) 98 08/21/17 07:59 Nasal Cannula 6.00 08/21/17 03:34 50 Intake and Output 08/21/17 08/21/17 08/22/17 08:00 16:00 00:00 Intake Total 750 ml Output Total 300 ml Balance 450 ml Result Diagram: 08/20/17 0345 08/20/17 0345 Imaging Last Impressions Chest X-Ray 08/20/17 0600 Signed Impressions: Service Date/Time: July 04:33 - CONCLUSION: 1. Improved aeration with decreased opacity of the lung bases. 2. Residual opacity remains at the left lung base with blunting of costophrenic angle. Christo Castillo MD Head CT 08/19/17 0000 Signed Impressions: Service Date/Time: Saturday, August 19, 2017 12:15 - CONCLUSION: Normal examination for a patient of this age. No significant change has occurred. Diego Bower MD Objective Remarks GENERAL: Patient is on BIPAP appears comfortable SKIN: Warm and dry. HEAD: Normocephalic. EYES: No scleral icterus. No injection or drainage. NECK: Supple, trachea midline. No JVD or lymphadenopathy. CARDIOVASCULAR: Regular rate and rhythm without murmurs, gallops, or rubs. RESPIRATORY: Breath sounds equal bilaterally. No accessory muscle use. GASTROINTESTINAL: Abdomen soft, non-tender, nondistended. MUSCULOSKELETAL: No cyanosis, or edema. Neuro: Awake and alert A/P Assessment and Plan 66-year-old male with: Acute on chronic respiratory failure Advanced end-stage COPD Diabetes mellitus CAD Chronic back pain Plan: Neuro: Follow neuro status. Altered mental status secondary to CO2 retention. Continue BiPAP. Avoid sedatives and narcotics. Cardiovascular:Monitor HR and BP keep MAP>65mmHg Pulmonary: Continue oxygen keep sat >92% Continue steroids, bronchodilators. NIPPV PRN for resp distress ID: Empiric antibiotic coverage with Zithromax/cefepime. Influenza negative. urine for strep pneumo and Legionella antigen negative GI/liver: On Po diet Renal/: Monitor renal function, electrolytes replacement as needed Heme: Monitor CBC Endocrine:SSI for glycemic control if needed. Prophylaxis: Pepcid/SCDs/Lovenox palliative care is following Dr. Rene discussed with Dr. Gomez on 08/19 to assist with clarifying CODE STATUS with family as patient has been followed by [facility] previously. Patient is currently a DNR status. Plan is to transfer to hospice today per Dr. Rene's discussion with Dr. Gomez yesterday Katya Rojas MD Aug 21, 2017 10:54
== END 2017-08-21 14:20 | disposition hospice, inpatient (51) | DRG 193 ==
LOC: NEPE 11:33 → NEDA 14:32 → HIME 17:30
PROVIDERS: ADMIT Internal Medicine Critical Care Medicine; ATTEND Internal Medicine Critical Care Medicine
PROC: 5A09457 Assistance with Respiratory Ventilation, 24-96 Consecutive Hours, Continuous Positive Airway Pressure (ICD-10-PCS; principal; 2017-08-19)
DX: J18.9 Pneumonia, unspecified organism (principal); J96.21 Acute and chronic respiratory failure with hypoxia; G93.40 Encephalopathy, unspecified; E87.2 Acidosis; J44.0 Chronic obstructive pulmonary disease with (acute) lower respiratory infection; J44.1 Chronic obstructive pulmonary disease with (acute) exacerbation; I10 Essential (primary) hypertension; I25.10 Atherosclerotic heart disease of native coronary artery without angina pectoris; G89.29 Other chronic pain; M54.9 Dorsalgia, unspecified; E78.5 Hyperlipidemia, unspecified; E11.40 Type 2 diabetes mellitus with diabetic neuropathy, unspecified; Z51.5 Encounter for palliative care; R26.81 Unsteadiness on feet; Z99.81 Dependence on supplemental oxygen; F10.11 Alcohol abuse, in remission; F19.11 Other psychoactive substance abuse, in remission; Z66 Do not resuscitate; F17.200 Nicotine dependence, unspecified, uncomplicated; I45.10 Unspecified right bundle-branch block; Z79.84 Long term (current) use of oral hypoglycemic drugs; Z91.14 Patient's other noncompliance with medication regimen; Z23 Encounter for immunization; Z87.01 Personal history of pneumonia (recurrent)
CPT/HCPCS: 36600; 70450; 71045; 80053; 81001; 82805; 83605; 83880; 84484; 85025; 85610; 85730; 87449; 87641; 87804; 90686; 93005; 94002; 94003; 94640; 94664; 96365; 96367; 96375; J0456; J0692; J1650; J1815; J1940; J2930; J7030; J7050; J7613; Q2038